=== PATIENT | male | born 1960 | race Caucasian/White ===

== ENCOUNTER 2022-06-20 16:38 | Inpatient (IN) ==
--- NOTE | 2022-06-20 17:05 | ED Triage Note ---
Date of Service June 20, 2022 History of Present Illness This patient was briefly evaluated while in triage. An abbreviated physical exam was performed. This patient is a 61-year-old Male with past medical history of previous stroke and DC who presents to the ED for evaluation of vision problems, sudden loss of vision in right eye that started monday morning, woke up with "black, no vision". No change since Monday. Dr. Whiting sent in for evaluyation. Reports DURANT and pain behind the right eye. Takes baby ASA. Physical Exam CONSTITUTIONAL: No acute distress. Well appearing. HEENT: Normocephalic, atraumatic. Pupils round, large, poorly reactive to light bilaterally. EOMI with no nystagmus. Patient reports complete loss of vision in right eye. RESPIRATORY: Clear to auscultation bilaterally. Equal expansion bilaterally. CARDIOVASCULAR: Regular rate and rhythm with no murmurs, rubs or gallops. Normal peripheral perfusion. NEUROLOGIC: Alert and oriented X 4 with normal affect. Normal strength and sensation in all 4 extremities. No pronator drift. Normal speech. Initial orders for labs and / or imaging were placed and patient was placed in the waiting area until a bed is available. Please see further documentation for the full ED course.
[2022-06-20] MEDS ORDERED: SODIUM CHLORIDE 0.9% 1000ML 500 ML IV ONE (17:15)
[2022-06-20 18:41] LABS: Basophils # (auto) 0.05 K/uL (0-0.2); Basophils % (auto) 0.7 %; Eosinophils # (auto) 0.44 K/uL (0-0.50); Hematocrit (blood only) 35.8 % (40.1-51.0); Hemoglobin 12.1 g/dl (14.0-18.0); Immature Granulocytes # (auto) 0.03 K/uL (0.00-0.02); Immature Granulocytes % (auto) 0.4 %; Lymphocytes # (auto) 1.42 K/uL (1.2-3.4); Lymphocytes % (auto) 19.4 %; Mean Corpuscular Hemoglobin 29.2 pg (25.0-34.0); Mean Corpuscular Hgb Conc 33.8 g/dL (32.0-36.0); Mean Corpuscular Volume 86.3 fL (80.0-100.0); Mean Platelet Volume 9.7 fL (9.4-12.4); Monocytes # (auto) 0.75 K/uL (0.24-0.82); Monocytes % (auto) 10.3 %; Neutrophils # (auto) 4.62 K/uL (1.4-6.5); Neutrophils % (auto) 63.2 %; Platelet Count 274 K/uL (130-400); RDW Coefficient of Variation 16.4 % (11.5-14.5); RDW Standard Deviation 51.6 fL (36.4-46.3); Red Blood Count 4.15 M/uL (4.63-6.08); White Blood Count 7.31 K/ul (4.8-10.8)
[2022-06-20 18:53] LABS: Partial Thromboplastin Time 27.1 Seconds (21.0-31.0)
--- NOTE | 2022-06-20 19:08 | Emergency Department Note ---
History of Present Illness General Chief complaint: Neuro Symptoms/Deficit Stated complaint: LOSS OF SIGHT IN RIGHT EYE Time Seen by Provider: 06/20/22 18:28 History of Present Illness Provider complaint: Right eye vision loss Onset (ago): day(s) 2 Location: eyes and right Radiation: non-radiation Severity: moderate Pain Consistency: + constant Maximum Pain Intensity: 8 Current Pain Intensity: 8 Quality: + sharp Relieved By: + none Exacerbated By: + none Associated symptoms: + headaches; no confusion, no chest pain, no cough, no di aphoresis, no fever/chills, no nausea/vomiting, no rash, no seizure, no shortness of breath or no syncope 61-year-old male presents emergency department for right eye vision loss. Patient states he went to bed Monday night and then woke up Monday morning and could not see out of his right eye. He states over the last 2 days he has developed pain behind his right eye. He reports no trauma or falls. No fevers. The patient states he went to his patient support specialist Dr. Whiting who did an eye exam on him which was normal and then referred him to the emergency department for a rule out stroke. Home Medications Medication Instructions Recorded Confirmed Type amlodipine 10 mg tablet (Norvasc) 10 mg PO DAILY 05/07/21 06/20/22 History hydrochlorothiazide 25 mg tablet 25 mg PO DAILY 05/07/21 06/20/22 History lisinopril 40 mg tablet 40 mg PO DAILY 05/07/21 06/20/22 History nitroglycerin 0.4 mg sublingual 0.4 mg sublingual Q5M PRN Chest 05/07/21 06/20/22 History tablet (Nitrostat) Pain rosuvastatin 40 mg tablet 40 mg PO DAILY 05/07/21 06/20/22 History cilostazol 50 mg tablet 50 mg PO BID 06/18/21 06/20/22 History metoprolol tartrate 25 mg tablet 25 mg PO BID 08/13/21 06/20/22 History aspirin 81 mg tablet,delayed 81 mg PO DAILY 06/20/22 06/20/22 History release cholecalciferol (vitamin D3) 125 250 mcg PO DAILY 06/20/22 06/20/22 History mcg (5,000 unit) tablet (Vitamin D3) coenzyme Q10 100 mg capsule 100 mg PO DAILY 06/20/22 06/20/22 History (CoQ-10) omega-3 fatty acids 1,000 mg 1,000 mg PO DAILY 06/20/22 06/20/22 History capsule Allergies Allergy/AdvReac Type Severity Reaction Status Date / Time Penicillins Allergy Unknown CAN'T Verified 06/20/22 20:31 REMEMBER diclofenac AdvReac Intermediate Vomiting Verified 06/20/22 20:31 Past Med/Surg History Medical History Coronary artery disease CVA (cerebral vascular accident) Hyperlipidemia Surgical History History of appendectomy History of cardiac cath Stented coronary artery Family History Mother Cardiovascular disease Social History Smoking Status: Never smoker Tobacco Type: Cigarettes Age Quit Using Tobacco: 53; packs per day: 1; Years Smoked: 35; Number of Years Since Quit: 7; Feels Safe at Home: Yes Review of Systems A total of 10 systems reviewed and were otherwise negative Physical Exam Vital Signs Vital Signs - 24 hr 06/20/22 17:01 06/20/22 18:26 06/20/22 19:39 Temperature 36.7 C 36.6 C Temperature Source Temporal Artery Scan Oral Pulse Rate 52 L Pulse Rate [Apical] 45 L 56 L Pulse Rhythm [Apical] Regular Pulse Strength [Apical] Normal Respiratory Rate 18 22 18 Respiratory Effort / Characteristics Non-Labored Spontaneous Non-Labored Respiratory Depth Normal Normal Respiratory Pattern Regular Blood Pressure 95/56 L Blood Pressure [Left Arm] 117/66 135/61 Blood Pressure Mean 69 Blood Pressure Mean [Left Arm] 83 85 Blood Pressure Position [Left Arm] Lying Pulse Oximetry 99 100 98 Oxygen Delivery Method Room Air Room Air Room Air Sepsis Recent Fever Within 48 Hours No Sepsis New/Unexplained Change in Mental Status No Sepsis Action Taken by Nursing No Action Required 06/20/22 21:40 Temperature Temperature Source Pulse Rate Pulse Rate [Apical] 80 Pulse Rhythm [Apical] Pulse Strength [Apical] Respiratory Rate 18 Respiratory Effort / Characteristics Non-Labored Respiratory Depth Normal Respiratory Pattern Blood Pressure Blood Pressure [Left Arm] 167/68 H Blood Pressure Mean Blood Pressure Mean [Left Arm] 101 Blood Pressure Position [Left Arm] Pulse Oximetry 96 Oxygen Delivery Method Room Air Sepsis Recent Fever Within 48 Hours Sepsis New/Unexplained Change in Mental Status Sepsis Action Taken by Nursing Physical Exam GENERAL: He is oriented to person, place, and time. He appears well-developed and well-nourished. He does not appear distressed. HENT: Exam performed. - Head: Pain on palpation of the right caodaism. - Right Ear: External ear normal. No mastoid tenderness. - Left Ear: External ear normal. No mastoid tenderness. - Mouth/Throat: The oropharynx is clear and moist. No trismus in the jaw. No dental abscesses or uvula swelling. No oropharyngeal exudate or tonsillar abscesses. EYES: Right eye vision loss. NECK: Normal range of motion. Neck supple. No JVD present. No spinous process tenderness present. No carotid bruit present. No rigidity. No tracheal deviation and normal range of motion present. No Brudzinski's sign and no Kernig's sign noted. CV: Normal rate, regular rhythm, normal heart sounds and intact distal pulses. There is no peripheral edema. Palpable radial pulses bue. PULM/CHEST: Effort normal and breath sounds normal. No respiratory distress. No stridor. He has no wheezes. He has no rales. - Chest Wall: He exhibits no tenderness. ABD: The abdomen is soft. Bowel sounds are normal. He has no distension. No mass is present. There is no tenderness. There is no rebound, no guarding, no Mak's sign and no tenderness at McBurney's point. Rovsig negative. MUSC/SKEL: Normal range of motion. There is no peripheral edema, tenderness or deformity. LYMPH: No cervical adenopathy. NEURO: He is alert and oriented to person, place, and time. He has normal strength. No cranial nerve deficit or sensory deficit. Coordination and gait normal. GCS eye subscore is 4. GCS verbal subscore is 5. GCS motor subscore is 6. Cerebellar tests wnl. SKIN: Skin is warm and dry. He is not diaphoretic. PSYCH: He has a normal mood and affect. Behavior is normal. Judgment and thought content normal. Course Course 1827: The patient was evaluated in room A12. A complete history and physical exam was performed Cardiac monitoring: An order was placed for continuous cardiac monitoring. The monitor shows a rate of 50 with sinus rhythm 2003: Labs show a BUN of 129 creatinine of 13.2. Patient does have a history of CKD however his creatinine usually runs around 2. Patient's ESR is elevated at 77. Discussed the case with on-call nephrology Dr. Ortez. He recommends placing a Davis in on the patient. He recommends getting ultrasound of the kidneys. Saline at 75 cc/h. He also recommends stopping the patient's diclofenac and lisinopril. He states he can evaluate the patient tomorrow morning on the inpatient unit and to admit the patient to the hospital service. Given the patient's elevated creatinine, CT angios will be canceled and we will move the patient to getting an MRI to make sure that there is no stroke. 2225: Vital signs stable. MRI negative for any stroke. Given patient's elevated ESR, mono ocular vision loss in the right eye, and pain on palpation of the temples, we will attempted to 8 the patient for temporal arteritis with Solu-Medrol 500 mg IV. Given the patient's onset of symptoms was when he awoke Monday, it is thought that is very unlikely that the Solu-Medrol will help restore the patient's vision however we will try it. Patient will be admitted to the hospitalist team for his TISHA and temporal arteritis. Dr. Chew made aware and will evaluate the patient Administered Medications Sodium Chloride (Nss 1000ml) 1,000 mls @ 75 mls/hr IV .[id number] DANA Stop: 07/20/22 20:14 Last Admin: 06/20/22 21:39 Dose: 75 mls/hr Documented By: COBRIN Discontinued Medications Diphenhydramine HCl (Diphenhydramine 50 Mg/Ml Vial) 25 mg IV NOW STA Stop: 06/20/22 22:24 Last Admin: 06/20/22 22:32 Dose: 25 mg Documented By: CORBIN Sodium Chloride (Nss 1000ml) 500 mls @ 999 mls/hr IV .Q31M ONE Stop: 06/20/22 17:45 Last Infusion: 06/20/22 19:40 Dose: 0 mls/hr Documented By: Admin: 06/20/22 18:22 Dose: 999 mls/hr Documented By: RITA Methylprednisolone (Methylprednisolone 125 Mg/2 Ml Vial) 500 mg IV NOW STA Stop: 06/20/22 22:24 Last Admin: 08/01/22 22:32 Dose: 500 mg Documented By: CORBIN Metoclopramide HCl (Metoclopramide Hcl Inj 5 Mg/Ml 2 Ml Vial) 5 mg IV ONE ONE Stop: 06/20/22 22:24 Last Admin: 06/20/22 22:32 Dose: 5 mg Documented By: CORBIN Medical Decision Making Laboratory Data Result diagrams: 06/20/22 18:15 06/20/22 18:15 Lab Results 06/20/22 06/20/22 06/20/22 Range/Units 18:15 18:15 18:15 WBC 7.31 (4.8-10.8) K/ul RBC 4.15 L (4.63-6.08) M/uL Hgb 12.1 L (14.0-18.0) g/dl Hct 35.8 L (40.1-51.0) % MCV 86.3 (80.0-100.0) fL MCH 29.2 (25.0-34.0) pg MCHC 33.8 (32.0-36.0) g/dL RDW Std Deviation 51.6 H (36.4-46.3) fL RDW Coeff of Jhonatan 16.4 H (11.5-14.5) % Plt Count 274 (130-400) K/uL MPV 9.7 (9.4-12.4) fL Immature Gran % (Auto) 0.4 % Neut % (Auto) 63.2 % Lymph % (Auto) 19.4 % Garden % (Auto) 10.3 % Eos % (Auto) 6.0 % Baso % (Auto) 0.7 % Neut # (Auto) 4.62 (1.4-6.5) K/uL Lymph # (Auto) 1.42 (1.2-3.4) K/uL Garden # (Auto) 0.75 (0.24-0.82) K/uL Eos # (Auto) 0.44 (0-0.50) K/uL Baso # (Auto) 0.05 (0-0.2) K/uL Immature Gran # (Auto) 0.03 H (0.00-0.02) K/uL ESR 77 H (0-20) mm/hr PT 11.0 (9.0-12.0) Seconds INR 1.0 (0.9-1.1) APTT 27.1 (21.0-31.0) Seconds PTT Ratio 1.0 Sodium (136-145) mmol/L Potassium (3.5-5.1) mmol/L Chloride (98-107) mmol/L Carbon Dioxide (21-32) mmol/L Anion Gap (3-11) BUN (6-23) mg/dl Creatinine (0.6-1.4) mg/dl Est Cr Clr Drug Dosing ml/min Est GFR ( Amer) ml/min Est GFR (Non-Af Amer) ml/min BUN/Creatinine Ratio (10-20) Glucose (70-99(Fasting)) mg/dl Calcium (8.5-10.1) mg/dl Total Bilirubin (0.2-1.0) mg/dl AST (13-39) U/L ALT (7-52) U/L Alkaline Phosphatase (34-104) U/L Troponin I High Sens (0-20) pg/ml C-Reactive Protein (0-0.5) mg/dl Total Protein (6.0-8.3) gm/dl Albumin (3.4-5.0) gm/dl Globulin (2.5-4.0) gm/dl Albumin/Globulin Ratio (0.9-2) Urine Color Urine Appearance (Clear) Urine pH (4.5-7.5) Ur Specific [place] (1.000-1.030) Urine Protein (Negative) Urine Glucose (UA) (Negative) Urine Ketones (Negative) Urine Blood (Negative) Urine Nitrite (Negative) Urine Bilirubin (Negative) Urine Urobilinogen (Negative) Ur Leukocyte Esterase (Negative) Urine WBC (Auto) (0-5) /hpf Urine RBC (Auto) (0-4) /hpf U Hyaline Cast (Auto) (0-5) /lpf U Epithel Cells (Auto) (0-5) /lpf Urine Bacteria (Auto) (Negative) Granular Casts (0) /lpf Urine Yeast SARS-CoV-2, RNA, NAAT (NEGATIVE) 06/20/22 06/20/22 06/20/22 Range/Units 18:15 19:31 21:43 WBC (4.8-10.8) K/ul RBC (4.63-6.08) M/uL Hgb (14.0-18.0) g/dl Hct (40.1-51.0) % MCV (80.0-100.0) fL MCH (25.0-34.0) pg MCHC (32.0-36.0) g/dL RDW Std Deviation (36.4-46.3) fL RDW Coeff of Jhonatan (11.5-14.5) % Plt Count (130-400) K/uL MPV (9.4-12.4) fL Immature Gran % (Auto) % Neut % (Auto) % Lymph % (Auto) % Garden % (Auto) % Eos % (Auto) % Baso % (Auto) % Neut # (Auto) (1.4-6.5) K/uL Lymph # (Auto) (1.2-3.4) K/uL [place] # (Auto) (0.24-0.82) K/uL Eos # (Auto) (0-0.50) K/uL Baso # (Auto) (0-0.2) K/uL Immature Gran # (Auto) (0.00-0.02) K/uL ESR (0-20) mm/hr PT (9.0-12.0) Seconds INR (0.9-1.1) APTT (21.0-31.0) Seconds PTT Ratio Sodium 139 (136-145) mmol/L Potassium 3.8 (3.5-5.1) mmol/L Chloride 99 (98-107) mmol/L Carbon Dioxide 20 L (21-32) mmol/L Anion Gap 20 H (3-11) BUN 129 H (6-23) mg/dl Creatinine 13.24 H* (0.6-1.4) mg/dl Est Cr Clr Drug Dosing 7.1 ml/min Est GFR ( Amer) 4.2 ml/min Est GFR (Non-Af Amer) 3.6 ml/min BUN/Creatinine Ratio 9.7 L (10-20) Glucose 124 H (70-99(Fasting)) mg/dl Calcium 9.2 (8.5-10.1) mg/dl Total Bilirubin 0.2 (0.2-1.0) mg/dl AST 11 L (13-39) U/L ALT 18 (7-52) U/L Alkaline Phosphatase 56 (34-104) U/L Troponin I High Sens 8.7 (0-20) pg/ml C-Reactive Protein 1.15 H (0-0.5) mg/dl Total Protein 7.3 (6.0-8.3) gm/dl Albumin 3.9 (3.4-5.0) gm/dl Globulin 3.4 (2.5-4.0) gm/dl Albumin/Globulin Ratio 1.1 (0.9-2) Urine Color Yellow Urine Appearance Clear (Clear) Urine pH 5.0 (4.5-7.5) Ur Specific [place] 1.013 (1.000-1.030) Urine Protein 1+ H (Negative) Urine Glucose (UA) Negative (Negative) Urine Ketones Negative (Negative) Urine Blood Trace H (Negative) Urine Nitrite Negative (Negative) Urine Bilirubin Negative (Negative) Urine Urobilinogen Negative (Negative) Ur Leukocyte Esterase Negative (Negative) Urine WBC (Auto) 1-5 (0-5) /hpf Urine RBC (Auto) 0-4 (0-4) /hpf U Hyaline Cast (Auto) 1-5 (0-5) /lpf U Epithel Cells (Auto) 20-30 H (0-5) /lpf Urine Bacteria (Auto) Negative (Negative) Granular Casts 1-5 H (0) /lpf Urine Yeast Not Reportable SARS-CoV-2, RNA, NAAT NEGATIVE (NEGATIVE) Imaging Data Radiologist's Impression: Renal Ultrasound 06/20/22 20:08 US renal/blad retro comp HISTORY: 61 years-old Male tisha acute kidney injury COMPARISON: Renal ultrasound 08/13/2021 TECHNIQUE: Multiple real-time sonographic images of the kidneys and urinary bladder were obtained assessing grayscale appearance and color flow FINDINGS: Right kidney measures 14.1 x 7.5 x 6.5 cm. The left kidney measures 12.9 x 7.6 x 7.4 cm. No renal calculi, hydronephrosis or suspicious mass lesion. Cortical thickness is normal bilaterally. Unremarkable urinary bladder. Ureteral jets not identified. IMPRESSION: Unremarkable renal ultrasound. ACT 112: Negative or not required by law. The above report was generated using voice recognition software. It may contain grammatical, syntax or spelling errors. Electronically signed by: Kyle Meek M.D. 06/20/2022 8:48 PM PreliminaryFindingsOnly See Final Report For Complete Findings MRI HEAD : No evidence of acute intercranial pathology. Minimal nonspecificwhite matter changes, which likely represent the sequelae of chronic small vessel ischemic disease. The flowvoids at the base of the brain are intact. Chronic ethmoid sinusitis. [facility]ologist: Emmanuelle Mejia MD Study ready at 22:07 and initial results transmitted at 22:17 ECG Data Indication: + other (R eye vision loss) Rate (beats per minute): 47 Rhythm: + sinus bradycardia ECG Intervals/blocks: + Normal QRS, + Normal NM and + Normal QT-c ECG ST segments: + Normal ST segments [facility] Narrative 182: The patient was evaluated in room A12. A complete history and physical exam was performed Cardiac monitoring: An order was placed for continuous cardiac monitoring. The monitor shows a rate of 50 with sinus rhythm 2002: Labs show a BUN of 129 creatinine of 13.2. Patient does have a history of CKD however his creatinine usually runs around 2. Patient's ESR is elevated at 77. Discussed the case with on-call nephrology Dr. Ortez. He recommends placing a Davis in on the patient. He recommends getting ultrasound of the kidneys. Saline at 75 cc/h. He also recommends stopping the patient's diclofenac and lisinopril. He states he can evaluate the patient tomorrow morning on the inpatient unit and to admit the patient to the hospital service. Given the patient's elevated creatinine, CT angios will be canceled and we will move the patient to getting an MRI to make sure that there is no stroke. 2225: Vital signs stable. MRI negative for any stroke. Given patient's elevated ESR, mono ocular vision loss in the right eye, and pain on palpation of the temples, we will attempted to 8 the patient for temporal arteritis with Solu-Medrol 500 mg IV. Given the patient's onset of symptoms was when he awoke Monday morning, it is thought that is very unlikely that the Solu-Medrol will help restore the patient's vision however we will try it. Patient will be admitted to the hospitalist team for his TISHA and temporal arteritis. Dr. Mike estrada made aware and will evaluate the patient Impression & Plan TISHA (acute kidney injury), Temporal arteritis Discharge Plan Visit Data Chief Complaint: Neuro Symptoms/Deficit Stated Complaint: LOSS OF SIGHT IN RIGHT EYE ED Provider: Jaydon [place] Discharge Problem: TISHA (acute kidney injury), Temporal arteritis Patient Disposition: Admitted As Inpatient Forms Stand Alone Forms: My [facility] Prescriptions Prescriptions: No Action hydrochlorothiazide 25 mg tablet 25 mg PO DAILY lisinopril 40 mg tablet 40 mg PO DAILY nitroglycerin [Nitrostat] 0.4 mg tablet, sublingual 0.4 mg sublingual Q5M PRN (Reason: Chest Pain) Rx Instructions: do not exceed 3 doses per episode amlodipine [Norvasc] 10 mg tablet 10 mg PO DAILY rosuvastatin 40 mg tablet 40 mg PO DAILY cilostazol 50 mg tablet 50 mg PO BID metoprolol tartrate 25 mg tablet 25 mg PO BID omega-3 fatty acids 1,000 mg Capsule 1,000 mg PO DAILY aspirin 81 mg Tablet,Delayed Release (Dr/Ec) 81 mg PO DAILY coenzyme Q10 [CoQ-10] 100 mg Capsule 100 mg PO DAILY cholecalciferol (vitamin D3) [Vitamin D3] 125 mcg (5,000 unit) Tablet 250 mcg PO DAILY Referrals Referrals: Endy Garner MD [Primary Care Provider] -
[2022-06-20 19:14] LABS: Troponin I High Sensitivity 8.7 pg/ml (0-20)
[2022-06-20 19:46] LABS: Albumin Globulin Ratio 1.1 (0.9-2); Albumin Level 3.9 gm/dl (3.4-5.0); BUN Creatinine Ratio 9.7 (10-20); Bilirubin,Total 0.2 mg/dl (0.2-1.0); C Reactive Protein 1.15 mg/dl (0-0.5); Calcium 9.2 mg/dl (8.5-10.1); Creatinine Clr Calc Pharmacy 7.1 ml/min; Est GFR (African American) 4.2 ml/min; Est GFR (Non-African American) 3.6 ml/min; Globulin 3.4 gm/dl (2.5-4.0); Potassium 3.8 mmol/L (3.5-5.1); Total Protein 7.3 gm/dl (6.0-8.3)
[2022-06-20] MEDS ORDERED: SODIUM CHLORIDE 0.9% 1000ML 1,000 ML IV SCH (20:15)
--- NOTE | 2022-06-20 20:49 | Ultrasound Report ---
US renal/blad retro comp HISTORY: 61 years-old Male steve acute kidney injury COMPARISON: Renal ultrasound 08/13/2021 TECHNIQUE: Multiple real-time sonographic images of the kidneys and urinary bladder were obtained ass essing grayscale appearance and color flow FINDINGS: Right kidney measures 14.1 x 7.5 x 6.5 cm. The left kidney measures 12.9 x 7.6 x 7.4 cm. No renal mela culi, hydronephrosis or suspicious mass lesion. Cortical thickness is normal bilaterally. Unremarkable urinary bladder. Ureteral jets not identified. IMPRESSION: Unremarkable renal ultrasound. ACT 112: Negative or not required by law. The above report was generated using voice recognition software. It may contain grammatical, syntax o r spelling errors. Electronically signed by: Kyle Meek M.D. 06/20/2022 8:48 PM
[2022-06-20 22:01] LABS: Appearance Urine Clear (Clear); Bacteria Urine Automated Negative (Negative); Bilirubin Urine Negative (Negative); Blood Urine Trace (Negative); Color Urine Yellow; Epithelial Cell Urine Auto 20-30 /lpf (0-5); Glucose Urine UA Negative (Negative); Ketones Urine Negative (Negative); Leukocyte Esterase Urine Negative (Negative); Nitrite Urine Negative (Negative); Protein Urine 1+ (Negative); RBC Urine Automated 0-4 /hpf (0-4); Specific Gravity Urine 1.013 (1.000-1.030); Urobilinogen Urine Negative (Negative)
[2022-06-20] MEDS ORDERED: diphenhydrAMINE 50 MG/ML VIAL IV STA (22:23)
[2022-06-20] MEDS ORDERED: methylPREDNISolone 125 MG/2 ML VIAL IV STA (22:23)
[2022-06-20] MEDS ORDERED: METOCLOPRAMIDE HCL INJ 5 MG/ML 2 ML VIAL IV ONE (22:23)
--- NOTE | 2022-06-20 23:53 | History & Physical Report ---
Date of Service June 20, 2022 Assessment & Plan (1) Vision loss of right eye: Plan: 61yo male with a history of HTN, HLD, CAD s/p RCA stent (x2, done in 2013), CKD3 (baseline creatinine ~2.0) presents with a two-day history of right-sided vision loss and right eye pain in the setting of a two-week history of nausea, vomiting, diarrhea, and poor PO intake. Sudden-onset right-sided vision loss and eye pain MRI brain ([facility] read): no acute intracranial pathology, minimal nonspecific white matter changes, chronic ethmoid sinusitis Labs notable for ARF (see below) and elevated ESR/CRP; hsTroponin not elevated Symptoms suspicious for cardioembolic event given acute vision loss concomitant with acute renal failure; no known history of atrial fibrillation, cardiac rhythm currently sinus (EKG: NSR with PACs) Differential also includes temporal arteritis; methylprednisolone 500mg IV (x1) given ED, monitor for symptom resolution Elevated ESR/CRP supports diagnosis of temporal arteritis Will hold off on heparin gtt for now given undifferentiated pathophysiology; SCDs ordered Admit to med/telemetry Consider further steroid administration pending clinical course Physical exam not concerning for swallowing dysfunction, no speech eval ordered Echo ordered Neuro checks q2h Repeat lipid profile and HbA1c ordered Acute renal failure, history of CKD3 Creatinine on admission 13.24 (baseline ~2.0), BUN 129; patient has history of CKD3 but no known history of ARF Etiology unclear at this time ED provider discussed case with Dr. Ortez who recommended hernández placement, US kidneys, NSS at 75mL/hr, and holding nephrotoxins US kidneys unremarkable Hold/avoid nephrotoxins NSS @ 75mL/hr NPO pending further workup Hernández placed Trend renal function daily Nausea, vomiting, diarrhea, poor PO intake Two week history of the above symptoms though with some improvement over past day No electrolyte abnormalities, though BUN/Cr severely elevated as noted above NSS @ 75mL/hr NPO pending above workup Zofran prn Trend renal function and electrolytes; CMP ordered for AM Hypertension BP slightly soft on arrival, slightly hypertensive afterwards, BP then normalized Hold home regimen Continue to monitor Hyperlipidemia Continue home rosuvastatin Home ASA held Repeat lipid profile ordered, HbA1c ordered FEN: NPO, NSS @ 75mL/hr Code status: full code DVT ppx: SCDs Held home meds: lisinopril, HCTZ, amlodipine, metoprolol, ASA Consults: nephrology Dispo: med/telemetry (2) Acute renal failure: (3) TISHA (acute kidney injury): (4) Chronic kidney disease (CKD): (5) Coronary artery disease: (6) Hyperlipidemia: (7) Hypertension: (8) Obesity: History of Present Illness Primary Care Provider: Endy Garner MD 61yo male with a history of HTN, HLD, CAD s/p RCA stent (x2, done in 2013), CKD3 (baseline creatinine ~2.0), and hypertensive nephrosclerosis (as per 08/09 nephrology note) presents with a two-day history of right-sided vision loss and right eye pain in the setting of a two-week history of nausea, vomiting, diarrhea, and poor PO intake. Patient went to sleep Monday with only mild symptoms as noted, but when he woke up Monday (two days ago) he could not see out of his right eye at all, and had a sharp pain behind his right eye. Patient does have a history of CVA "many years ago" with the only persistent symptom being mild intermittent vertigo, which has not bothered patient recently. Patient went to an slip caster on 06/20 in the afternoon - the slip caster's exam was reportedly without acute findings, and so patient was referred to the ED for workup for CVA. Denies fever, chills, CP, SOB, abdominal pain, lightheadedness, dizziness, or other symptoms. No recent travel, no recent illnesses preceding the last two weeks. No recent falls or trauma. Patient does note he didn't urinate for two days last week though this has improved. Patient has been drinking three to four 16oz bottles of water and one to two 12oz bottles of gatorade each day. [place], but denies any recent known tick bites. Patient does note he got a sunburn on his nose recently which has scabbed over. Upon arrival to [facility], vitals were noted for low-end blood pressure, and were otherwise stable. Patient afebrile, spO2 adequate on room air. Labs on admission were primarily notable for a creatinine of 13.2 and BUN of 129 in addition to mild anemia (12.1), elevated ESR (77), and elevated CRP (1.15). No leukocytosis, platelets wnl, INR 1.0, LFTs wnl. Covid negative. UA was notable for granular casts (1-5), 1+ protein, and trace blood; UA was otherwise unremarkable. In the ED, patient was given NSS 500mL bolus (x1), started on NSS @ 125mL/hr, and was given methylprednisolone IV 500mg (x1), metoclopramide IV 5mg (x1), and diphenhydramine IV 25mg (x1). Patient's headache resolved while in the ED. Surrogate decision-maker in case of an emergency: Dixie Meyer (cell: [phone]) Allergies Allergy/AdvReac Type Severity Reaction Status Date / Time Penicillins Allergy Unknown CAN'T Verified 06/20/22 20:31 REMEMBER diclofenac AdvReac Intermediate Vomiting Verified 06/20/22 20:31 Home Medications Medication Instructions Recorded Confirmed Type amlodipine 10 mg tablet (Norvasc) 10 mg PO DAILY 05/07/21 06/20/22 History hydrochlorothiazide 25 mg tablet 25 mg PO DAILY 05/07/21 06/20/22 History lisinopril 40 mg tablet 40 mg PO DAILY 05/07/21 06/20/22 History nitroglycerin 0.4 mg sublingual 0.4 mg sublingual Q5M PRN Chest 05/07/21 06/20/22 History tablet (Nitrostat) Pain rosuvastatin 40 mg tablet 40 mg PO DAILY 05/07/21 06/20/22 History cilostazol 50 mg tablet 50 mg PO BID 06/18/21 06/20/22 History metoprolol tartrate 25 mg tablet 25 mg PO BID 08/13/21 06/20/22 History aspirin 81 mg tablet,delayed 81 mg PO DAILY 06/20/22 06/20/22 History release cholecalciferol (vitamin D3) 125 250 mcg PO DAILY 06/20/22 06/20/22 History mcg (5,000 unit) tablet (Vitamin D3) coenzyme Q10 100 mg capsule 100 mg PO DAILY 06/20/22 06/20/22 History (CoQ-10) omega-3 fatty acids 1,000 mg 1,000 mg PO DAILY 06/20/22 06/20/22 History capsule Past Med/Surg History Medical History Coronary artery disease CVA (cerebral vascular accident) Hyperlipidemia Surgical History History of appendectomy History of cardiac cath Stented coronary artery Family History Mother Cardiovascular disease Social History Smoking Status: Former smoker Tobacco Type: Cigarettes Age Quit Using Tobacco: 53; packs per day: 1; Years Smoked: 35; Number of Years Since Quit: 7; Hx Alcohol Use: Yes Alcohol type: beer Hx Substance Use: No Preferred Language: Lithuanian Manager Process Excellence Required: No Beliefs That Will Affect Care: None Current Living Situation: Spouse Feels Safe at Home: Yes Assistive Devices: Apnea Monitor Assistive Devices Comment: glasses not with patient Physical Exam Physical Exam: Constitutional: well-appearing, no acute distress HEENT: NCAT, no conjunctival injection, right gnosticist tender to palpation CV: regular rhythm, no murmur appreciated, extremities well-perfused, no LE edema Resp: CTABL, no wheezes/rales/rhonchi appreciated, no increased work of breathing GI: soft, nondistended, nontender, BS normoactive MSK: no gross deformities appreciated Skin: warm, dry, no rash appreciated Neuro: alert, oriented, no focal neurologic deficit appreciated Results & Data Results & Data ([facility]) Vital Signs (Past 12 Hours) Vital Signs Temp Pulse Pulse Resp BP BP Pulse Ox 06/20/22 23:47 82 18 116/60 98 06/20/22 21:40 80 18 167/68 H 96 06/20/22 19:39 56 L 18 135/61 98 06/20/22 18:26 36.6 C 45 L 22 117/66 100 06/20/22 17:01 36.7 C 52 L 18 95/56 L 99 O2 Del Method 06/20/22 23:47 Room Air 06/20/22 21:40 Room Air 06/20/22 19:39 Room Air 06/20/22 18:26 Room Air 06/20/22 17:01 Room Air Supervising Physician Co-Signing Physician Notes Attending addendum: I have physically seen this patient, have supervised the medical residents activities, and agree with the H&P unless as otherwise noted. Assessment and Plan: Sudden onset vision loss right eye- Referred by his eye doctor Dr. Whiting Combined with acute renal failure, concern regarding possible embolic disease Elevated sedimentation rate 77, could be consistent with temporal arteritis Given empiric methylprednisolone 500mg IV by the ED, and will continue IV anti- inflammatories Admit to monitored bed for serial troponins and cardiac rhythm monitoring Neurochecks every 2 hours Order complete echocardiogram Consult neurology Acute renal failure on CKD stage III- Creatinine 13.24 on admission with baseline creatinine approximately 2.[address] Ortez over the phone by ED with recommendations as noted Renal ultrasound is unremarkable NSS at 75 mils per hour Hernández catheter placement Daily chemistry profile Nausea/vomiting/diarrhea and poor p.o. intake- NSS at 75 mils per hour Ordered CT abdomen pelvis without contrast Dehydration at least contributing to acute renal failure Remaining orders and notations as noted Resident Activity Tracking Resident Involvement: Resident Care Provided and Electric Blanket Wirer Coverage Note Care Provided: Adult Hospital Medicine
[2022-06-21] MEDS ORDERED: BACITRACIN OINT 15 GM TUBE ONE (00:09)
[2022-06-21] MEDS ORDERED: NITROGLYCERIN SL 0.4 MG/TAB TAB SL PRN (03:00)
[2022-06-21] MEDS ORDERED: MELATONIN 3 MG TAB PO PRN (03:00)
[2022-06-21 06:01] LABS: Hematocrit (blood only) 36.6 % (40.1-51.0); Hemoglobin 12.4 g/dl (14.0-18.0); Mean Corpuscular Hemoglobin 28.7 pg (25.0-34.0); Mean Corpuscular Hgb Conc 33.9 g/dL (32.0-36.0); Mean Corpuscular Volume 84.7 fL (80.0-100.0); Mean Platelet Volume 9.7 fL (9.4-12.4); Platelet Count 284 K/uL (130-400); RDW Coefficient of Variation 16.2 % (11.5-14.5); RDW Standard Deviation 50.4 fL (36.4-46.3); Red Blood Count 4.32 M/uL (4.63-6.08); White Blood Count 6.69 K/ul (4.8-10.8)
[2022-06-21 06:22] LABS: Albumin Globulin Ratio 1.2 (0.9-2); Albumin Level 3.9 gm/dl (3.4-5.0); BUN Creatinine Ratio 10.7 (10-20); Bilirubin,Total 0.3 mg/dl (0.2-1.0); Calcium 8.5 mg/dl (8.5-10.1); Chol HDL Ratio 2.7 (0-5); Creatinine Clr Calc Pharmacy 8.4 ml/min; Est GFR (African American) 5.1 ml/min; Est GFR (Non-African American) 4.4 ml/min; Globulin 3.3 gm/dl (2.5-4.0); Magnesium 1.7 mg/dl (1.7-2.4); Phosphorus 8.6 mg/dl (2.5-4.9); Potassium 3.5 mmol/L (3.5-5.1); Total Protein 7.2 gm/dl (6.0-8.3)
--- NOTE | 2022-06-21 07:16 | Magnetic Resonance Report ---
Brain MRI WITHOUT CONTRAST HISTORY: Right eye vision loss. TECHNIQUE: Multiplanar multisequence MRI of the brain was performed without the use of contrast. COMPARISON STUDY: Brain MRI 01/28/2008. FINDINGS: There are no areas of restricted diffusion to suggest acute infarction. The midline structu res are intact. The paranasal sinuses demonstrate mild mucosal thickening. The mastoid air cells are clear. The ventricles and sulci are within normal limits for age. There is no mass, hematoma, midline shift. The major vascular flow-voids at the skull base are well maintained. A cavum septum callosum is again noted. IMPRESSION: No significant change compared to the prior study. No acute intracranial abnormality. ACT 112: Negative or not required by law. Electronically signed by: [place] M.D. 06/21/2022 7:14 AM
[2022-06-21 07:31] LABS: Basophils # (auto) 0.03 K/uL (0-0.2); Basophils % (auto) 0.4 %; Echinocytes 1+; Eosinophils # (auto) 0.02 K/uL (0-0.50); Eosinophils % (auto) 0.3 %; Immature Granulocytes # (auto) 0.04 K/uL (0.00-0.02); Immature Granulocytes % (auto) 0.6 %; Lymphocytes # (auto) 0.53 K/uL (1.2-3.4); Lymphocytes % (auto) 7.9 %; Monocytes # (auto) 0.09 K/uL (0.24-0.82); Monocytes % (auto) 1.3 %; Neutrophils # (auto) 5.98 K/uL (1.4-6.5); Neutrophils % (auto) 89.5 %
[2022-06-21 07:45] LABS: Estimated Average Glucose 154 mg/dl
--- NOTE | 2022-06-21 08:54 | Nephrology Progress Note ---
Date of Service June 21, 2022 Assessment & Plan Admission and Anticipated Discharge Date Admission Date: June 21, 2022 Results & Data ([facility]) Vital Signs (Past 12 Hours) Vital Signs Temp Pulse Pulse Resp BP Pulse Ox O2 Del Method 06/21/22 07:40 80 06/21/22 03:18 86 06/21/22 03:00 37 C 87 14 134/73 98 Room Air 06/21/22 02:12 62 18 132/64 96 Room Air 06/20/22 23:47 82 18 116/60 98 Room Air 06/20/22 21:40 80 18 167/68 H 96 Room Air Laboratory Results Laboratory Tests 11/24/21 06/20/22 06/20/22 14:04 18:15 21:43 WBC Hgb Hct Plt Count Sodium Potassium Chloride Carbon Dioxide BUN Creatinine 13.24 H* Glucose Hemoglobin A1c Calcium Phosphorus Albumin Urine Color Yellow Urine Appearance Clear Urine pH 5.0 Ur Specific [place] 1.013 Urine Protein 1+ H Urine Glucose (UA) Negative Urine Blood Trace H Urine WBC (Auto) 1-5 Urine RBC (Auto) 0-4 Granular Casts 1-5 H Protein/Creatinin Ratio 0.4 H 06/21/22 06/21/22 06/21/22 05:33 05:33 05:33 WBC 6.69 Hgb 12.4 L Hct 36.6 L Plt Count 284 Sodium 138 Potassium 3.5 Chloride 103 Carbon Dioxide 14 L BUN 119 H Creatinine 11.16 H* D Glucose 188 H Hemoglobin A1c 7.0 H Calcium 8.5 Phosphorus 8.6 H Albumin 3.9 Urine Color Urine Appearance Urine pH Ur Specific [place] Urine Protein Urine Glucose (UA) Urine Blood Urine WBC (Auto) Urine RBC (Auto) Granular Casts Protein/Creatinin Ratio Diagnostic Findings 06/21/22 Renal US: Right kidney measures 14.1 x 7.5 x 6.5 cm. The left kidney measures 12.9 x 7.6 x 7.4 cm. No renal calculi, hydronephrosis or suspicious mass lesion. Cortical thickness is normal bilaterally. Unremarkable urinary bladder. Ureteral jets not identified. PG Care Time/CCT Total # of Minutes Spent Total Time Spent with Patient: Total time spent is greater than 50% in coordination of care (as documented) at patient's floor/unit and/or counseling patient: Coding
[2022-06-21] MEDS: cilostazoL 100 MG TAB PO SCH ×2 (08:57→21:35)
[2022-06-21] MEDS: ROSUVASTATIN CALCIUM 20 MG TAB PO SCH (08:57)
[2022-06-21] MEDS: SODIUM CHLORIDE 0.9% 1000ML 1,000 ML IV SCH ×2 (08:57→18:53)
[2022-06-21] MEDS ORDERED: ACETAMINOPHEN 500 MG TAB PO PRN (09:32)
[2022-06-21] MEDS: SEVELAMER HCL 800 MG TABLET PO SCH ×3 (10:29→16:39)
--- NOTE | 2022-06-21 11:23 | Hospitalist Progress Note ---
Date of Service June 21, 2022 Assessment & Plan (1) Vision loss of right eye: Plan: 61yo male with a history of HTN, HLD, CAD s/p RCA stent (x2, done in 2013), CKD3 (baseline creatinine ~2.0) presents with a two-day history of right-sided vision loss and right eye pain in the setting of a two-week history of nausea, vomiting, diarrhea, and poor PO intake. Sudden-onset right-sided vision loss and eye pain MRI brain: no acute intracranial pathology, minimal nonspecific white matter changes, chronic ethmoid sinusitis Labs notable for ARF (see below) and elevated ESR/CRP; hsTroponin not elevated Differential includes temporal arteritis which is most likely, less suspicion for glaucoma or cardioembolic event Echocardiogram- EF 65-70%, no WMA, grade 1 diastolic dysfunction noted Neuro checks q2h Continue high dose IV methylprednisolone 1000 mg daily at this time General surgery consulted for temporal artery biopsy Carotid dopplers pending Acute renal failure, history of CKD3 Creatinine on admission 13.24 (baseline ~2.0) Etiology unclear at this time- may be due to fluid losses from recent possible GI illness in setting of CKD Renal ultrasound unremarkable for obstruction Holding lisinopril and HCTZ Davis catheter in place Nephrology consulted -Suspect TISHA due to ATN 2/2 dehydration in setting of ACEI therapy -Recommend more aggressive fluid repletion- NSS @ 150 ml/hr Cr improving with IVF- 10.0 today Trend BMP Nausea, vomiting, diarrhea, poor PO intake Two week history of the above symptoms though with some improvement over past day- possible viral GI illness which precipitated ARF No electrolyte abnormalities, though BUN/Cr severely elevated as noted above NSS @ 150 mL/hr Zofran prn Trend renal function and electrolytes Hypertension BP slightly soft on arrival, slightly hypertensive afterwards, BP then normalized Hold home regimen due to ARF Continue to monitor Hyperlipidemia Continue home rosuvastatin Home ASA held Repeat lipid profile wnl, HbA1c 7.0% FEN: NPO, NSS @ 150 mL/hr Code status: full code DVT ppx: SCDs Consults: nephrology, general surgery Dispo: med/telemetry (2) Acute renal failure: (3) TISHA (acute kidney injury): (4) Chronic kidney disease (CKD): (5) Coronary artery disease: (6) Hyperlipidemia: (7) Hypertension: (8) Obesity: Admission and Anticipated Discharge Date Admission Date: June 21, 2022 Supervising Physician Co-Signing Physician Notes I personally examined the patient and verified all tang points of history and exam, discussed case, and agree with decision making with Dr Robles Still no vision in right eye. Headache better but persists. Had a day or 2 with absolutely no urine output. Vitals noted, in general he is awake and alert pleasant no distress. HEENT normocephalic atraumatic mucous membranes moist. Breathing unlabored no accessory muscle use good effort. No vision in right eye, but pupil is reactive. No other focal neurodeficits no facial droop no arm weakness etc. Otherwise exam as above. Right eye blindnessgiven headache elevated sed rate paindifferentials definitely favor giant cell arteritis/temporal arteritis. With pain, unlikely to be amaurosis fugaxand while he does have risks for vascular disease, his work-up thus far is also negative for ischemic type findings. Ophthalmologic exam apparently not consistent with glaucoma, optic neuritis, etc. continue to follow closely. Steroids. Serial exams. Acute renal failurenot obstructive based on renal ultrasound. To that end, probably dehydration and diarrhea compounding dehydration causing a fairly severe ATN type picture. DVT prophylaxisHeparin subcu Otherwise as above Subjective No acute events overnight. Pt reports he still cannot see at all from R eye, though his R eye pain has resolved. Does endorse throbbing/sharp headache at area of R yazidism + behind R eye. Denies any jaw pain. States for past 2 weeks he has had multiple symptoms including nausea, reduced appetite, diarrhea as well as 2 days of urinary retention. He does note feeling slightly better in regard to the ocular symptoms since starting steroids. Denies any new weakness/numbness, slurred speech. Review of Systems Review of Systems: Per subjective Physical Exam Physical Exam: Constitutional: well-appearing, no acute distress, obese HEENT: NCAT, EOMI, anicteric sclerae, no conjunctival injection, right yazidism tender to palpation, no jaw tenderness CV: RRR, normal S1/S2, no murmur appreciated, extremities well-perfused, no LE edema Resp: CTAB, no wheezes/rales/rhonchi appreciated, no increased work of breathing GI: soft, nondistended, nontender MSK: no gross deformities appreciated Skin: warm, dry, no rash appreciated Neuro: alert, oriented, PERRLA, total loss of R vision with complete R visual field deficits, 5/5 strength of b/l LE and UE, no sensory deficits Results & Data Results & Data ([facility]) Vital Signs (Past 12 Hours) Vital Signs Temp Pulse Pulse Resp BP Pulse Ox O2 Del Method 06/21/22 07:40 80 06/21/22 03:18 86 06/21/22 03:00 37 C 87 14 134/73 98 Room Air 06/21/22 02:12 62 18 132/64 96 Room Air 06/20/22 23:47 82 18 116/60 98 Room Air Resident Activity Tracking Resident Involvement: Resident Care Provided Care Provided: Adult Hospital Medicine
--- NOTE | 2022-06-21 11:25 | XCELERA ---
[id number]
--- NOTE | 2022-06-21 11:28 | Nephrology Consultation ---
Date of Consultation June 21, 2022 Assessment & Plan (1) TISHA (acute kidney injury): * TISHA likely ATN due to dehydration in the setting of SEAN inhibitor therapy * Hold Lisinopril and HCTZ * Patient denies use of Diclofenac or OTC NSAID since last Nephrology OV 08/10 * Increase IVF to 150 cc/hr * Keep Davis catheter in place. UO has not yet been recorded but patient reports that staff psychiatrist has just emptied the collection bag. There is another 200 cc clear yellow urine in collection bag this am * Renal US was negative for obstruction, PSA < 4.0 * Monitor PRP (2) Chronic kidney disease (CKD): * CKD stage G3/A2 (moderate impairment). Baseline Cr 1.4 - 1.8 w/ EGFR 39 cc/min. Prior evaluation revealed acellular urine sediment. UPCR 0.8. 08/10 renal US - R 13 cm, L 11.3 cm, no hydronephrosis/mass/stone. Renal impairment was attributed to microvascular disease, hypertensive nephrosclerosis and chronic NSAID use (3) Vision loss of right eye: * Await results of carotid doppler, echocardiogram * Primary service considering temporal artery biopsy History of Present Illness Reason for Consultation: TISHA/CKD Attending Physician: Kristian Canseco DO History of Present Illness Mr. Meyer is a 61 year old white male who is seen at the request of the [facility] hospitalist service for evlauation of TISHA/CKD. Medical records in the EMR were reviewed today and are summarized as follows: Mr. Meyer has CKD stage G3/A2 (moderate impairment). Baseline Cr 1.4 - 1.8 w/ EGFR 39 cc/min. Prior eval uation revealed acellular urine sediment. UPCR 0.8. 08/10 renal US - R 13 cm, L 11.3 cm, no hydronephrosis/mass/stone. Renal impairment was attributed to microvascular disease, hypertensive nephrosclerosis and chronic NSAID use. Mr. Meyer was last evaluated in the Nephrology office 08/10. He was advised to reduce/stop NSAID use and return in 3 months for ongoing monitoring. He cancelled his 11/09 visit and was lost to follow up. Mr. Meyer reports that he stopped his Diclofenac but remained on Lisinopril and HCTZ. His medical history is significant for ASCVD (RCA stent x2 12/03 Dr. Pat), HTN, CVA, hyperlipidemia, obesity (BMI 38) and remote h/o tobacco use. 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 He reports heat exhaustion during the last 2 weeks and did not make any urine for the last 2 days. Yesterday he lost sight in his R eye and presented to his Instrument Adjuster for evaluation. He was subsequently referred to [facility] EMD for evaluation of possible CVA. Laboratory testing revealed Cr 13, urinalysis w/ granular casts, Hgb 12, COVID negative. IVF were provided, brain MRI was negative for CVA, renal US was negative for hydronephrosis. Allergies Allergy/AdvReac Type Severity Reaction Status Date / Time Penicillins Allergy Unknown CAN'T Verified 06/20/22 20:31 REMEMBER diclofenac AdvReac Intermediate Vomiting Verified 06/20/22 20:31 Home Medications Medication Instructions Recorded Confirmed Type amlodipine 10 mg tablet (Norvasc) 10 mg PO DAILY 05/07/21 06/20/22 History hydrochlorothiazide 25 mg tablet 25 mg PO DAILY 05/07/21 06/20/22 History lisinopril 40 mg tablet 40 mg PO DAILY 05/07/21 06/20/22 History nitroglycerin 0.4 mg sublingual 0.4 mg sublingual Q5M PRN Chest 05/07/21 06/20/22 History tablet (Nitrostat) Pain rosuvastatin 40 mg tablet 40 mg PO DAILY 05/07/21 06/20/22 History cilostazol 50 mg tablet 50 mg PO BID 06/18/21 06/20/22 History metoprolol tartrate 25 mg tablet 25 mg PO BID 08/13/21 06/20/22 History aspirin 81 mg tablet,delayed 81 mg PO DAILY 06/20/22 06/20/22 History release cholecalciferol (vitamin D3) 125 250 mcg PO DAILY 06/20/22 06/20/22 History mcg (5,000 unit) tablet (Vitamin D3) coenzyme Q10 100 mg capsule 100 mg PO DAILY 06/20/22 06/20/22 History (CoQ-10) omega-3 fatty acids 1,000 mg 1,000 mg PO DAILY 06/20/22 06/20/22 History capsule Patient History Medical History Coronary artery disease CVA (cerebral vascular accident) Hyperlipidemia Surgical History History of appendectomy History of cardiac cath Stented coronary artery Family History Mother Cardiovascular disease Social History Smoking Status: Former smoker Tobacco Type: Cigarettes Age Quit Using Tobacco: 53; packs per day: 1; Years Smoked: 35; Number of Years Since Quit: 7; Hx Alcohol Use: Yes Alcohol type: beer Hx Substance Use: No Preferred Language: Montenegrin 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 Beliefs That Will Affect Care: None Current Living Situation: Spouse Feels Safe at Home: Yes Assistive Devices: Glasses Assistive Devices Comment: glasses not with patient Review of Systems Constitutional: + weakness; no fever Eyes: + eye pain and + problem reported (loss of vision R eye) Ear, Nose, Mouth, Throat: + dry mouth Respiratory: no cough and no dyspnea Cardiovascular: no chest pain Gastrointestinal: no abdominal pain Genitourinary: + decreased urination (no UO last 2 days) Physical Exam Constitutional: + overweight; not in distress Eyes: + dilated pupils (R) ENMT: Mouth: + dry oral mucous membranes Neck: no carotid bruit Respiratory: normal respiratory effort, lungs clear to auscultation Cardiovascular: RRR, no murmur, no edema Skin: + turgor decreased Neurologic: awake; not confused Results & Data ([facility]) Vital Signs (Past 12 Hours) Vital Signs Temp Pulse Pulse Resp BP Pulse Ox O2 Del Method 06/21/22 07:40 80 06/21/22 03:18 86 06/21/22 03:00 37 C 87 14 134/73 98 Room Air 06/21/22 02:12 62 18 132/64 96 Room Air 06/20/22 23:47 82 18 116/60 98 Room Air Laboratory Results Laboratory Results - last 24 hr 06/20/22 06/20/22 06/20/22 18:15 18:15 18:15 WBC 7.31 RBC 4.15 L Hgb 12.1 L Hct 35.8 L MCV 86.3 MCH 29.2 MCHC 33.8 RDW Std Deviation 51.6 H RDW Coeff of Jhonatan 16.4 H Plt Count 274 MPV 9.7 Immature Gran % (Auto) 0.4 Neut % (Auto) 63.2 Lymph % (Auto) 19.4 Marin % (Auto) 10.3 Eos % (Auto) 6.0 Baso % (Auto) 0.7 Neut # (Auto) 4.62 Lymph # (Auto) 1.42 Marin # (Auto) 0.75 Eos # (Auto) 0.44 Baso # (Auto) 0.05 Immature Gran # (Auto) 0.03 H Echinocytes ESR 77 H PT 11.0 INR 1.0 APTT 27.1 PTT Ratio 1.0 Sodium Potassium Chloride Carbon Dioxide Anion Gap BUN Creatinine Est Cr Clr Drug Dosing Est GFR ( Amer) Est GFR (Non-Af Amer) BUN/Creatinine Ratio Glucose Estimat Average Glucose Hemoglobin A1c Calcium Phosphorus Magnesium Total Bilirubin AST ALT Alkaline Phosphatase Troponin I High Sens C-Reactive Protein Total Protein Albumin Globulin Albumin/Globulin Ratio Triglycerides Cholesterol LDL Cholesterol, Calc VLDL Cholesterol, Calc HDL Cholesterol Cholesterol/HDL Ratio Prostate Specific Ag Urine Color Urine Appearance Urine pH Ur Specific [place] Urine Protein Urine Glucose (UA) Urine Ketones Urine Blood Urine Nitrite Urine Bilirubin Urine Urobilinogen Ur Leukocyte Esterase Urine WBC (Auto) Urine RBC (Auto) U Hyaline Cast (Auto) U Epithel Cells (Auto) Urine Bacteria (Auto) Granular Casts Urine Yeast SARS-CoV-2, RNA, NAAT 06/20/22 06/20/22 06/20/22 18:15 19:31 21:43 WBC RBC Hgb Hct MCV MCH MCHC RDW Std Deviation RDW Coeff of Jhonatan Plt Count MPV Immature Gran % (Auto) Neut % (Auto) Lymph % (Auto) Marin % (Auto) Eos % (Auto) Baso % (Auto) Neut # (Auto) Lymph # (Auto) Marin # (Auto) Eos # (Auto) Baso # (Auto) Immature Gran # (Auto) Echinocytes ESR PT INR APTT PTT Ratio Sodium 139 Potassium 3.8 Chloride 99 Carbon Dioxide 20 L Anion Gap 20 H BUN 129 H Creatinine 13.24 H* Est Cr Clr Drug Dosing 7.1 Est GFR ( Amer) 4.2 Est GFR (Non-Af Amer) 3.6 BUN/Creatinine Ratio 9.7 L Glucose 124 H Estimat Average Glucose Hemoglobin A1c Calcium 9.2 Phosphorus Magnesium Total Bilirubin 0.2 AST 11 L ALT 18 Alkaline Phosphatase 56 Troponin I High Sens 8.7 C-Reactive Protein 1.15 H Total Protein 7.3 Albumin 3.9 Globulin 3.4 Albumin/Globulin Ratio 1.1 Triglycerides Cholesterol LDL Cholesterol, Calc VLDL Cholesterol, Calc HDL Cholesterol Cholesterol/HDL Ratio Prostate Specific Ag Urine Color Yellow Urine Appearance Clear Urine pH 5.0 Ur Specific [place] 1.013 Urine Protein 1+ H Urine Glucose (UA) Negative Urine Ketones Negative Urine Blood Trace H Urine Nitrite Negative Urine Bilirubin Negative Urine Urobilinogen Negative Ur Leukocyte Esterase Negative Urine WBC (Auto) 1-5 Urine RBC (Auto) 0-4 U Hyaline Cast (Auto) 1-5 U Epithel Cells (Auto) 20-30 H Urine Bacteria (Auto) Negative Granular Casts 1-5 H Urine Yeast Not Reportable SARS-CoV-2, RNA, NAAT NEGATIVE 06/21/22 06/21/22 06/21/22 05:33 05:33 05:33 WBC 6.69 RBC 4.32 L Hgb 12.4 L Hct 36.6 L MCV 84.7 MCH 28.7 MCHC 33.9 RDW Std Deviation 50.4 H RDW Coeff of Jhonatan 16.2 H Plt Count 284 MPV 9.7 Immature Gran % (Auto) 0.6 Neut % (Auto) 89.5 Lymph % (Auto) 7.9 Marin % (Auto) 1.3 Eos % (Auto) 0.3 Baso % (Auto) 0.4 Neut # (Auto) 5.98 Lymph # (Auto) 0.53 L Marin # (Auto) 0.09 L Eos # (Auto) 0.02 Baso # (Auto) 0.03 Immature Gran # (Auto) 0.04 H Echinocytes 1+ ESR PT INR APTT PTT Ratio Sodium 138 Potassium 3.5 Chloride 103 Carbon Dioxide 14 L Anion Gap 21 H BUN 119 H Creatinine 11.16 H* D Est Cr Clr Drug Dosing 8.4 Est GFR ( Amer) 5.1 Est GFR (Non-Af Amer) 4.4 BUN/Creatinine Ratio 10.7 Glucose 188 H Estimat Average Glucose 154 Hemoglobin A1c 7.0 H Calcium 8.5 Phosphorus 8.6 H Magnesium 1.7 Total Bilirubin 0.3 AST 10 L ALT 16 Alkaline Phosphatase 56 Troponin I High Sens C-Reactive Protein Total Protein 7.2 Albumin 3.9 Globulin 3.3 Albumin/Globulin Ratio 1.2 Triglycerides 115 Cholesterol 81 LDL Cholesterol, Calc 28 VLDL Cholesterol, Calc 23 HDL Cholesterol 30 Cholesterol/HDL Ratio 2.7 Prostate Specific Ag Urine Color Urine Appearance Urine pH Ur Specific [place] Urine Protein Urine Glucose (UA) Urine Ketones Urine Blood Urine Nitrite Urine Bilirubin Urine Urobilinogen Ur Leukocyte Esterase Urine WBC (Auto) Urine RBC (Auto) U Hyaline Cast (Auto) U Epithel Cells (Auto) Urine Bacteria (Auto) Granular Casts Urine Yeast SARS-CoV-2, RNA, NAAT 06/21/22 09:11 WBC RBC Hgb Hct MCV MCH MCHC RDW Std Deviation RDW Coeff of Jhonatan Plt Count MPV Immature Gran % (Auto) Neut % (Auto) Lymph % (Auto) Marin % (Auto) Eos % (Auto) Baso % (Auto) Neut # (Auto) Lymph # (Auto) Marin # (Auto) Eos # (Auto) Baso # (Auto) Immature Gran # (Auto) Echinocytes ESR PT INR APTT PTT Ratio Sodium Potassium Chloride Carbon Dioxide Anion Gap BUN Creatinine Est Cr Clr Drug Dosing Est GFR ( Amer) Est GFR (Non-Af Amer) BUN/Creatinine Ratio Glucose Estimat Average Glucose Hemoglobin A1c Calcium Phosphorus Magnesium Total Bilirubin AST ALT Alkaline Phosphatase Troponin I High Sens C-Reactive Protein Total Protein Albumin Globulin Albumin/Globulin Ratio Triglycerides Cholesterol LDL Cholesterol, Calc VLDL Cholesterol, Calc HDL Cholesterol Cholesterol/HDL Ratio Prostate Specific Ag 1.700 Urine Color Urine Appearance Urine pH Ur Specific [place] Urine Protein Urine Glucose (UA) Urine Ketones Urine Blood Urine Nitrite Urine Bilirubin Urine Urobilinogen Ur Leukocyte Esterase Urine WBC (Auto) Urine RBC (Auto) U Hyaline Cast (Auto) U Epithel Cells (Auto) Urine Bacteria (Auto) Granular Casts Urine Yeast SARS-CoV-2, RNA, NAAT Diagnostic Findings 06/20/22 renal US: Right kidney measures 14.1 x 7.5 x 6.5 cm. The left kidney measures 12.9 x 7.6 x 7.4 cm. No renal calculi, hydronephrosis or suspicious mass lesion. Cortical thickness is normal bilaterally. Unremarkable urinary bladder. Ureteral jets not identified. PG Care Time/CCT Total # of Minutes Spent Total Time Spent with Patient: Total time spent is greater than 50% in coordination of care (as documented) at patient's floor/unit and/or counseling patient: Coding Level of Care Code 27902 Inpt Consult Level 5 Diagnoses TISHA (acute kidney injury) N17.9 Chronic kidney disease (CKD) N18.9 Vision loss of right eye H54.61
--- NOTE | 2022-06-21 11:42 | Electrocardiogram Report ---
Test Reason : Blood Pressure : / mmHG Vent. Rate : 047 BPM Atrial Rate : 047 BPM P-R Int : 148 ms QRS Dur : 096 ms QT Int : 438 ms P-R-T Axes : 050 075 052 degrees QTc Int : 387 ms Sinus bradycardia Low voltage QRS Borderline ECG When compared with ECG of 05-DEC-2013 07:36, QRS duration has increased Criteria for Anteroseptal infarct are no longer Present Confirmed by Paolo Blank ([id number]) on 06/21/2022 11:42:09 AM Referred By: REFERRED SELF Confirmed By:Yandel Blank
--- NOTE | 2022-06-21 11:50 | Electrocardiogram Report ---
Test Reason : Blood Pressure : / mmHG Vent. Rate : 077 BPM Atrial Rate : 077 BPM P-R Int : 138 ms QRS Dur : 090 ms QT Int : 428 ms P-R-T Axes : 046 082 056 degrees QTc Int : 484 ms Sinus rhythm with Premature atrial complexes Prolonged QT Abnormal ECG When compared with ECG of 20-JUN-2022 17:53, (unconfirmed) Premature atrial complexes are now Present Vent. rate has increased BY 30 BPM QT has lengthened Confirmed by Paolo Blank ([id number]) on 06/21/2022 11:50:20 AM Referred By: REFERRED SELF Confirmed By:Yandel Blank
--- NOTE | 2022-06-21 12:02 | Surgery Consultation ---
Date of Consultation June 21, 2022 Assessment & Plan (1) Vision loss of right eye: This is a 61yM with a PMH of HTN, CKD, CAD with stents, HLD, obesity, back pain, who presents to the [facility] ED on 06/20/22 with complaints of R eye vision loss that he noticed upon waking up on Monday AM. He says this is associated with headaches and pain behind his right eye. He went to an paper ruler on Monday and per patient his eye exam was normal and he was referred to the ER to rule out stroke. Work up to rule out stroke included a brain MRI that showed no intracranial abnormality. Labs showed an elevated CRP to 1.1 and ESR 77. Nephrology is following for patient's TISHA with history of CKD. He has been started on steroid treatment since admission. We have been consulted to consider temporal artery biopsy. Unclear if symptoms related to temporal arteritis. Will await full workup prior to proceeding with surgical intervention. Could consider carotid dopplers and optho consultation here for their input and maybe repeat exam. Pending how things unfold we will place him on the schedule this admission vs he may follow up with us as outpt for elective scheduling. Supervising Physician Co-Signing Physician Notes Dr. Robertsonpatient with right eye blindness, apparently was a value by Dr. Whiting and Dr. Whiting sent him to the hospital for evaluation He is being worked up for an embolic episode-his echo appears to be relatively normal, carotid Doppler is pending I discussed temporal artery biopsy with the patient which would at least require sedation-this is not urgent-can proceed during this admission depending on how he does with his work-up or bring him back in in 1 to 2 weeks and proceed with outpatient biopsy History of Present Illness Attending Physician: Kristian Canseco DO History of Present Illness This is a 61yM with a PMH of HTN, CKD, CAD with stents, HLD, obesity, back pain, who presents to the [facility] ED on 06/20/22 with complaints of R eye vision loss. Patient reports going to bed Monday evening feeling fine and when he woke up on Monday morning he could not see out of his R eye. He says this is associated with headaches and pain behind his right eye. He went to an paper ruler on Monday and per patient his eye exam was normal and he was referred to the ER to rule out stroke. A brain MRI that showed no intracranial abnormality. He was admitted under the medicine service thereafter for further workup. Patient reports a history of stroke over 20 years ago he said was called "a mild stroke with severe vertigo". He denies any vertigo now, but says he is unsteady on his feet on occasion since that incident. Denies dizziness. No personal history of auto immune disease that he is aware of. When asked about his kidney issues he reports a recent history of dehydration where he did not pee for over 2 days and now has been drinking lots of gatorade and water. Allergies Allergy/AdvReac Type Severity Reaction Status Date / Time Penicillins Allergy Unknown CAN'T Verified 06/20/22 20:31 REMEMBER diclofenac AdvReac Intermediate Vomiting Verified 06/20/22 20:31 Home Medications Medication Instructions Recorded Confirmed Type amlodipine 10 mg tablet (Norvasc) 10 mg PO DAILY 05/07/21 06/20/22 History hydrochlorothiazide 25 mg tablet 25 mg PO DAILY 05/07/21 06/20/22 History lisinopril 40 mg tablet 40 mg PO DAILY 05/07/21 06/20/22 History nitroglycerin 0.4 mg sublingual 0.4 mg sublingual Q5M PRN Chest 05/07/21 06/20/22 History tablet (Nitrostat) Pain rosuvastatin 40 mg tablet 40 mg PO DAILY 05/07/21 06/20/22 History cilostazol 50 mg tablet 50 mg PO BID 06/18/21 06/20/22 History metoprolol tartrate 25 mg tablet 25 mg PO BID 08/13/21 06/20/22 History aspirin 81 mg tablet,delayed 81 mg PO DAILY 06/20/22 06/20/22 History release cholecalciferol (vitamin D3) 125 250 mcg PO DAILY 06/20/22 06/20/22 History mcg (5,000 unit) tablet (Vitamin D3) coenzyme Q10 100 mg capsule 100 mg PO DAILY 06/20/22 06/20/22 History (CoQ-10) omega-3 fatty acids 1,000 mg 1,000 mg PO DAILY 06/20/22 06/20/22 History capsule Patient History Medical History Coronary artery disease CVA (cerebral vascular accident) Hyperlipidemia Surgical History History of appendectomy History of cardiac cath Stented coronary artery Family History Mother Cardiovascular disease Social History Smoking Status: Former smoker Tobacco Type: Cigarettes Age Quit Using Tobacco: 53; packs per day: 1; Years Smoked: 35; Number of Years Since Quit: 7; Hx Alcohol Use: Yes Alcohol type: beer Hx Substance Use: No Preferred Language: Japanese [place] 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 Beliefs That Will Affect Care: None Current Living Situation: Spouse Feels Safe at Home: Yes Assistive Devices: Glasses Assistive Devices Comment: glasses not with patient Review of Systems Eyes: + eye pain (behind R eye) and + problem reported (loss of vision in R eye) Neurologic: + headache(s); no localized weakness, no generalized weakness and no dizziness Physical Exam Physical Exam: awake/alert, no acute distress Eyes: loss of vision in R eye Respiratory: normal respiratory effort Results & Data ([facility]) Vital Signs (Past 12 Hours) Vital Signs Temp Pulse Pulse Resp BP Pulse Ox O2 Del Method 06/21/22 07:40 80 06/21/22 03:18 86 06/21/22 03:00 37 C 87 14 134/73 98 Room Air 06/21/22 02:12 62 18 132/64 96 Room Air Diagnostic Findings Brain MRI WITHOUT CONTRAST HISTORY: Right eye vision loss. TECHNIQUE: Multiplanar multisequence MRI of the brain was performed without the use of contrast. COMPARISON STUDY: Brain MRI 01/28/2008. FINDINGS: There are no areas of restricted diffusion to suggest acute infarction. The midline structures are intact. The paranasal sinuses demonstrate mild mucosal thickening. The mastoid air cells are clear. The ventricles and sulci are within normal limits for age. There is no mass, hematoma, midline shift. The major vascular flow-voids at the skull base are well maintained. A cavum septum callosum is again noted. IMPRESSION: No significant change compared to the prior study. No acute intracranial abnormality. ACT 112: Negative or not required by law. Electronically signed by: [place] M.D. 06/21/2022 7:14 AM PG Care Time/CCT Total # of Minutes Spent Total Time Spent with Patient: Total time spent is greater than 50% in coordination of care (as documented) at patient's floor/unit and/or counseling patient: Coding Level of Care Code 92159 Inpt Consult Level 1 Diagnoses Vision loss of right eye H54.61
[2022-06-21] MEDS: methylPREDNISolone 1,000 MG in DEXTROSE 5% 250 ML IV SCH (12:17)
[2022-06-21 12:25] LABS: BUN Creatinine Ratio 11.6 (10-20); Calcium 8.5 mg/dl (8.5-10.1); Creatinine Clr Calc Pharmacy 9.3 ml/min; Est GFR (African American) 5.9 ml/min; Est GFR (Non-African American) 5.1 ml/min; Potassium 3.3 mmol/L (3.5-5.1)
[2022-06-21 13:52] LABS: Creatinine Urine Random 88.8 mg/dl
[2022-06-21] MEDS ORDERED: ONDANSETRON INJ 2 MG/ML 2 ML VIAL IV PRN (16:55)
[2022-06-21 17:04] LABS: BUN Creatinine Ratio 11.9 (10-20); Calcium 8.4 mg/dl (8.5-10.1); Creatinine Clr Calc Pharmacy 10.2 ml/min; Est GFR (African American) 6.5 ml/min; Est GFR (Non-African American) 5.6 ml/min
--- NOTE | 2022-06-21 17:17 | Ultrasound Report ---
ULTRASOUND OF THE CAROTID ARTERIES CLINICAL HISTORY: Vision loss. COMPARISON STUDY: No priors. TECHNIQUE: Real-time, grayscale, and color Doppler sonography of the carotid arteries is performed. I mages are reviewed in the transverse and longitudinal planes. FINDINGS: The carotid arteries are patent bilaterally and demonstrate antegrade flow. There is moderate atheros clerotic plaque seen bilateral. Normal doppler arterial waveforms are seen throughout. Velocity measu rements are listed below. Common carotid peak systolic velocity (cm/sec): RIGHT: 61 LEFT: 192 ICA proximal peak systolic velocity (cm/sec): RIGHT: 89 LEFT: 63 ICA mid peak systolic velocity (cm/sec): RIGHT: 73 LEFT: 50 ICA distal peak systolic velocity (cm/sec): RIGHT: 69 LEFT: 53 ICA/CC peak systolic ratio: RIGHT: 1.5 LEFT: 0.3 Antegrade flow was shown in the vertebral arteries. The external carotid arteries are patent. Elevate d within the external carotid arteries bilaterally suggests some degree of stenosis. IMPRESSION: 1. Atherosclerotic plaque with no sonographic evidence of hemodynamically significant stenosis in the right carotid arterial system. 2. There are elevated velocities within the left common carotid artery suggesting some degree of sten osis. 3. There is no sonographic evidence of hemodynamically significant stenosis involving the left product management intern al carotid artery by velocity criteria. 4. Antegrade flow is shown in the vertebral arteries. 5. Elevated velocities within the external carotid arteries also likely indicates some degree of sten osis ACT 112: Negative or not required by law. Electronically signed by: Luis Alfredo Crowley M.D. 06/21/2022 5:15 PM
[2022-06-21] MEDS ORDERED: POTASSIUM CHLORIDE CRTAB 20 MEQ TABCR PO STA (17:42)
--- NOTE | 2022-06-21 18:31 | Billing Data ---
Date of Service June 21, 2022 Coding Level of Care Code 01372 Subseq Hosp Care Lvl 3
--- NOTE | 2022-06-21 18:34 | Billing Data ---
Date of Service June 21, 2022 Coding Level of Care Code 50318 Subseq Hosp Care Lvl 3
[2022-06-21] MEDS: D5W AND 1/2NSS + 20MEQ KCL 20 MEQ/1,000 ML BAG IV SCH (21:33)
[2022-06-21] MEDS: HEPARIN SOD 5,000 UNIT/0.5 ML VIAL SQ SCH ×2 (21:33→21:35)
[2022-06-22] MEDS: D5W AND 1/2NSS + 20MEQ KCL 20 MEQ/1,000 ML BAG IV SCH (03:58)
[2022-06-22 05:52] LABS: Hematocrit (blood only) 34.8 % (40.1-51.0); Mean Corpuscular Hemoglobin 29.2 pg (25.0-34.0); Mean Corpuscular Hgb Conc 34.5 g/dL (32.0-36.0); Mean Corpuscular Volume 84.7 fL (80.0-100.0); Mean Platelet Volume 9.9 fL (9.4-12.4); Platelet Count 293 K/uL (130-400); RDW Standard Deviation 49.9 fL (36.4-46.3); Red Blood Count 4.11 M/uL (4.63-6.08); White Blood Count 12.42 K/ul (4.8-10.8)
[2022-06-22 06:24] LABS: Basophils # (auto) 0.01 K/uL (0-0.2); Basophils % (auto) 0.1 %; Immature Granulocytes # (auto) 0.08 K/uL (0.00-0.02); Immature Granulocytes % (auto) 0.6 %; Lymphocytes # (auto) 0.77 K/uL (1.2-3.4); Lymphocytes % (auto) 6.2 %; Monocytes # (auto) 0.22 K/uL (0.24-0.82); Monocytes % (auto) 1.8 %; Neutrophils # (auto) 11.34 K/uL (1.4-6.5); Neutrophils % (auto) 91.3 %; RBC Morphology Unremarkable
[2022-06-22 06:25] LABS: BUN Creatinine Ratio 13.5 (10-20); C Reactive Protein 0.53 mg/dl (0-0.5); Calcium 8.3 mg/dl (8.5-10.1); Creatinine Clr Calc Pharmacy 11.8 ml/min; Est GFR (African American) 7.8 ml/min; Est GFR (Non-African American) 6.7 ml/min; Potassium 3.4 mmol/L (3.5-5.1)
--- NOTE | 2022-06-22 07:22 | Surgery Progress Note ---
Date of Service June 22, 2022 Assessment & Plan (1) Vision loss of right eye: Plan: Can proceed tomorrow/ with right temporal artery biopsy under local sedation I have some concern with the patient's continued high BUN and creatinine-his urine output does seem to be improving His carotid duplex did not show significant stenosis We will see what the medical team feels as far as his stability to undergo sedation-could otherwise delay the temporal artery biopsy But would probably be best to perform within the next 1 to 2 weeks-we will continue him on his steroids as appropriate I have tentatively added him on for tomorrow Admission and Anticipated Discharge Date Admission Date: June 21, 2022 Results & Data ([facility]) Vital Signs (Past 12 Hours) Vital Signs Temp Pulse Resp BP Pulse Ox O2 Del Method 06/22/22 03:00 Room Air 06/22/22 03:20 36.3 C L 85 20 135/66 94 Room Air 06/21/22 22:59 36.7 C 76 20 111/67 92 Room Air 06/21/22 19:34 36.8 C 96 H 20 152/73 H 99 Room Air PG Care Time/CCT Total # of Minutes Spent Total Time Spent with Patient: Total time spent is greater than 50% in coordination of care (as documented) at patient's floor/unit and/or counseling patient: Coding Level of Care Code None Diagnoses Vision loss of right eye H54.61
[2022-06-22] MEDS: methylPREDNISolone 1,000 MG in DEXTROSE 5% 250 ML IV SCH (07:34)
[2022-06-22] MEDS: HEPARIN SOD 5,000 UNIT/0.5 ML VIAL SQ SCH ×2 (07:35→20:28)
[2022-06-22] MEDS: cilostazoL 100 MG TAB PO SCH ×2 (07:35→20:27)
[2022-06-22] MEDS: ROSUVASTATIN CALCIUM 20 MG TAB PO SCH (07:35)
[2022-06-22] MEDS: SEVELAMER HCL 800 MG TABLET PO SCH ×3 (07:35→16:01)
--- NOTE | 2022-06-22 08:22 | Nephrology Progress Note ---
Date of Service June 22, 2022 Assessment & Plan (1) TISHA (acute kidney injury): Plan: * TISHA likely ATN due to dehydration in the setting of SEAN inhibitor therapy * Hold Lisinopril and HCTZ * Patient denies use of Diclofenac or OTC NSAID since last Nephrology OV 08/10 * Continue 0.9NS at 100 cc/hr * Keep Davis catheter in place. I&O's have been matched since admission * Renal US was negative for obstruction, PSA < 4.0 * Monitor PRP (2) Chronic kidney disease (CKD): Plan: * CKD stage G3/A2 (moderate impairment). Baseline Cr 1.4 - 1.8 w/ EGFR 39 cc/min. Prior evaluation revealed acellular urine sediment. UPCR 0.8. 08/10 renal US - R 13 cm, L 11.3 cm, no hydronephrosis/mass/stone. Renal impairment was attributed to microvascular disease, hypertensive nephrosclerosis and chronic NSAID use (3) Vision loss of right eye: Plan: * 06/21/22 carotid doppler - negative for significant stenosis * Await results of echocardiogram * Primary service considering temporal artery biopsy (4) Abdominal bruit: Plan: * Will order US aorta w/ doppler and ask that they include the proximal renal arteries Admission and Anticipated Discharge Date Admission Date: June 21, 2022 Subjective Mr. Meyer was evaluated in his hospital room this morning. He is tolerating IV hydration without dyspnea or angina. He voices no new medical concerns. Review of Systems Constitutional: + weakness; no fever Eyes: + eye pain and + problem reported (loss of vision R eye) Ear, Nose, Mouth, Throat: + dry mouth Respiratory: no cough and no dyspnea Cardiovascular: no chest pain Gastrointestinal: no abdominal pain Genitourinary: + decreased urination Physical Exam 2 Constitutional: + overweight; not in distress Eyes: + dilated pupils (R) ENMT: Mouth: + dry oral mucous membranes Respiratory: normal respiratory effort, lungs clear to auscultation Cardiovascular: RRR, no murmur, no edema Gastrointestinal (Abdomen): normal bowel sounds, soft, nontender, no hepatosplenomegaly + abdominal bruit Skin: + turgor decreased Neurologic: awake; not confused Results & Data ([facility]) Vital Signs (Past 12 Hours) Vital Signs Temp Pulse Pulse Resp BP Pulse Ox O2 Del Method 06/22/22 07:12 36.6 C 91 H 20 114/58 L 94 Room Air 06/22/22 03:00 Room Air 06/22/22 03:20 36.3 C L 85 20 135/66 94 Room Air 06/21/22 22:59 36.7 C 76 20 111/67 92 Room Air Laboratory Results Laboratory Tests 06/20/22 06/22/22 18:15 05:33 Sodium 140 Potassium 3.4 L Chloride 104 Carbon Dioxide 22 BUN 107 H Creatinine 13.24 H* 7.95 H* D Glucose 233 H Calcium 8.3 L PG Care Time/CCT Total # of Minutes Spent Total Time Spent with Patient: Total time spent is greater than 50% in coordination of care (as documented) at patient's floor/unit and/or counseling patient: Coding Level of Care Code 60680 Subseq Hosp Care Lvl 3 Diagnoses TISHA (acute kidney injury) N17.9 Chronic kidney disease (CKD) N18.9 Vision loss of right eye H54.61 Abdominal bruit R09.89
[2022-06-22] MEDS: ASPIRIN 81 MG ECTAB PO SCH (08:51)
--- NOTE | 2022-06-22 09:57 | Hospitalist Progress Note ---
Date of Service June 22, 2022 Assessment & Plan (1) Vision loss of right eye: Plan: 61yo male with a history of HTN, HLD, CAD s/p RCA stent (x2, done in 2013), CKD3 (baseline creatinine ~2.0) presents with a two-day history of right-sided vision loss and right eye pain in the setting of a two-week history of nausea, vomiting, diarrhea, and poor PO intake. Sudden-onset right-sided vision loss and eye pain MRI brain: no acute intracranial pathology, minimal nonspecific white matter changes, chronic ethmoid sinusitis Labs notable for ARF (see below) and elevated ESR/CRP; hsTroponin not elevated Differential includes temporal arteritis which is most likely, less suspicion for glaucoma or cardioembolic event Echocardiogram- EF 65-70%, no WMA, grade 1 diastolic dysfunction noted Carotid doppler without significant stenoses Neuro checks spaced q2h to q4h Continue high dose IV methylprednisolone 1000 mg daily at this time ESR, CRP downtrending. Mild leukocytosis 6.7 to 12.4 likely due to steroids General surgery consulted- temporal artery biopsy scheduled for 06/23 Discussed case with pt's technical architect 06/22 -Optic nerve findings typical of GCA not seen -Suspect potential ophthalmic artery occlusion- will continue secondary risk reduction- cilostazol, aspirin, high-intensity statin Acute renal failure, history of CKD3 Creatinine on admission 13.24 (baseline ~2.0) Etiology unclear at this time- may be due to fluid losses from recent possible GI illness in setting of CKD Renal ultrasound unremarkable for obstruction Holding lisinopril and HCTZ Davis catheter in place Nephrology consulted 06/21 and following -Suspect TISHA due to ATN 2/2 dehydration in setting of ACEI therapy -Continue aggressive fluid repletion, rate decreased today- NSS @ 100 ml/hr Cr improving with IVF- 7.95 today Trend BMP Hypokalemia Mild hypokalemia 3.4 likely secondary to acute renal failure Continue KCl oral supplementation Trend BMP Nausea, vomiting, diarrhea, poor PO intake Two week history of the above symptoms though with some improvement over past day- possible viral GI illness which precipitated ARF Improving PO tolerance, continue IVF + Zofran PRN Trend BMP Hypertension BP slightly soft on arrival, slightly hypertensive afterwards, BP then normalized Hold home regimen due to ARF Continue to monitor Hyperlipidemia Continue home rosuvastatin 40 mg Home ASA held Repeat lipid profile wnl Diabetes -HbA1c 7.0% -Appears to be new diagnosis though well-controlled at present, BSGs wnl -F/u with PCP for diabetic regimen FEN: Heart healthy diet, NSS @ 100 mL/hr Code status: full code DVT ppx: Heparin SQ BID Consults: nephrology, general surgery Dispo: med/telemetry (2) Acute renal failure: (3) TISHA (acute kidney injury): (4) Chronic kidney disease (CKD): (5) Coronary artery disease: (6) Hyperlipidemia: (7) Hypertension: (8) Obesity: Admission and Anticipated Discharge Date Admission Date: June 21, 2022 Supervising Physician Co-Signing Physician Notes I personally examined the patient and verified all tang points of history and exam, discussed case, and agree with decision making with Dr Robles Headache significantly better. No recovery of vision in right eye. Case discussed with ophthalmology, input greatly appreciated. Vitals noted, in general he is awake and alert pleasant no distress. HEENT normocephalic atraumatic mucous membranes moist. Breathing unlabored no accessory muscle use good effort. No other focal neuro deficits beyond right eye vision loss. No facial droop no arm weakness etc. Otherwise exam as above. Right eye blindnessgiven headache elevated sed rate paindifferentials definitely favor giant cell arteritis/temporal arteritis. Far less likely to be ischemic vascular diseasealthough until giant cell arteritis is proven, a small arterial atherosclerotic occlusion cannot be definitively ruled out. No carotid embolic or cardioembolic source appears likelyhe does have vascular risks, but they seem to be overall well managed with his home regimen. For biopsy in the near future, continue corticosteroids, serial exams. Acute renal failurenot obstructive based on renal ultrasound. To that end, probably dehydration and diarrhea compounding dehydration causing a fairly severe ATN type picture. Fortunately is improving Type 2 diabeteslikely will be good with lifestyle change given that his A1c is only 7.0. DVT prophylaxisHeparin subcu Otherwise as above Subjective No acute events overnight. Pt reports he still cannot see at all from R eye, though his headache has resolved. Continues to deny jaw pain, fever, chills, abdominal or chest pain. Able to tolerate PO intake without issue, however he does report some nausea y esterday and did throw up a few of his medications. Denies nausea at present. Review of Systems Review of Systems: Per subjective Physical Exam Physical Exam: Constitutional: well-appearing, no acute distress, obese HEENT: NCAT, EOMI, anicteric sclerae, no conjunctival injection, right synagogue tender to palpation, no jaw tenderness CV: RRR, normal S1/S2, no murmur appreciated, extremities well-perfused, no LE edema Resp: CTAB, no wheezes/rales/rhonchi appreciated, no increased work of breathing GI: soft, nondistended, nontender MSK: no gross deformities appreciated Skin: warm, dry, no rash appreciated Neuro: alert, oriented, pupils constrict to light though R afferent pupillary defect, total loss of R vision with complete R visual field deficits, 5/5 strength of b/l LE and UE, no sensory deficits Results & Data Results & Data ([facility]) Vital Signs (Past 12 Hours) Vital Signs Temp Pulse Pulse Resp BP Pulse Ox O2 Del Method 06/22/22 07:12 36.6 C 91 H 20 114/58 L 94 Room Air 06/22/22 03:00 Room Air 06/22/22 03:20 36.3 C L 85 20 135/66 94 Room Air 06/21/22 22:59 36.7 C 76 20 111/67 92 Room Air Resident Activity Tracking Resident Involvement: Resident Care Provided Care Provided: Adult Hospital Medicine
[2022-06-22] MEDS: SODIUM CHLORIDE 0.9% 1000ML 1,000 ML IV SCH ×2 (10:44→20:28)
--- NOTE | 2022-06-22 12:17 | Ultrasound Report ---
US aorta duplex CLINICAL HISTORY: abdominal bruit COMPARISON STUDY: None. FINDINGS: Real-time sonographic imaging of the aorta was performed with human resources representative images submitt ed. The proximal and distal abdominal aorta obscured by overlying bowel gas. The mid abdominal aorta is normal in caliber measuring 1.9 cm. The iliac arteries are not identified due to the overlying bow el gas. IMPRESSION: The proximal and distal abdominal aorta were obscured by overlying bowel gas. There is a normal caliber mid abdominal aorta. ACT 112: Negative or not required by law. Electronically signed by: [place] M.D. 06/22/2022 12:16 PM
--- NOTE | 2022-06-22 12:19 | Ultrasound Report ---
US duplex renal artery CLINICAL HISTORY: ABDOMINAL BRUIT COMPARISON STUDY: Renal ultrasound 06/20/2022. FINDINGS: The proximal and mid bilateral renal arteries were obscured by overlying bowel gas. The dis niki right renal artery demonstrates a peak systolic velocity of 162 cm/s. The distal left renal arter y demonstrates a peak systolic velocity of 138 cm/s. Resistive indices of the bilateral renal arcuate arteries are less than 0.8. The bilateral renal veins are patent. IMPRESSION: The proximal and mid bilateral renal arteries were obscured by overlying bowel gas. No s ignificant stenosis within the distal bilateral renal arteries. ACT 112: Negative or not required by law. Electronically signed by: Mt Rose M.D. 06/22/2022 12:18 PM
[2022-06-22 15:37] LABS: BUN Creatinine Ratio 15.1 (10-20); Calcium 8.1 mg/dl (8.5-10.1); Creatinine Clr Calc Pharmacy 13.1 ml/min; Est GFR (African American) 8.8 ml/min; Est GFR (Non-African American) 7.6 ml/min; Potassium 3.8 mmol/L (3.5-5.1)
--- NOTE | 2022-06-22 18:03 | Billing Data ---
Date of Service June 22, 2022 Coding Level of Care Code 00179 Subseq Hosp Care Lvl 3
--- NOTE | 2022-06-23 01:07 | Billing Data ---
Date of Service June 23, 2022 Coding Level of Care Code 69834 Initial Inpt Care Lvl 3
--- NOTE | 2022-06-23 03:45 | Consultation Report ---
OPHTHALMOLOGY CONSULTATION NOTE DATE OF SERVICE: 06/22/2022 CHIEF COMPLAINT AND HISTORY OF PRESENT ILLNESS: This is a 61-year-old male with a medical history of hypertension, hyperlipidemia, coronary artery disease and a remote history of a cerebrovascular acci dent who presented to our outside office originally on 06/20/2022 for a 2-day history of complete vis ion loss in the right eye. He stated that for the two weeks preceding his visual symptoms, he report ed nausea, vomiting, fevers, chills, and weight loss. He woke up in the morning on 06/19/2022 and de scribed his right eye vision as "black." He might have been able to see some shadows initially, but r eported that the vision went "completely black" over the course of the day. He noted pain in the rig ht jehovah's witness and behind the right eye that started that morning as well. He has no prior history of eye disease. In our office, his eye exam was remarkable for no light perception vision in the right eye , normal eye pressures, a right afferent pupillary defect, and his dilated exam did not show any pall id disc edema, retinal hemorrhage or macular pathology. His left eye exam was unremarkable. He was told to go emergently to the [facility] Emergency Department to rule out stroke and to work up for possible giant cell arteritis. Upon reexamination today, he reports that his vision has not improved at all since admission, but his headache and pain behind the eye have greatly improv ed since he has been on IV steroid. PAST MEDICAL HISTORY: Remarkable for hypertension, coronary artery disease status post stenting, hyp erlipidemia, chronic kidney disease. PAST SURGICAL HISTORY: Remarkable for coronary stenting and an appendectomy. MEDICATIONS: Please see medication list. ALLERGIES: PENICILLIN, DICLOFENAC. SOCIAL HISTORY: Lives with . He is a past smoker. PHYSICAL EXAMINATION: His eye exam, his visual acuity at near with his reading glasses is no light p erception in the right eye and 20/50 in the left eye. His intraocular pressures were 20 in the right eye and 21 in the left eye. His pupils, the right pupil was about 5 mm, very sluggishly reactive to light, and did show an afferent pupillary defect. The left pupil was 5 mm and reacted briskly to 4 mm. His extraocular movements are full in both eyes. His confrontational visual pike are full in the left eye and again no light perception in the right eye. His anterior segment exam on the right shows lids, lashes, and lacrimal glands to be within normal limits. His conjunctiva shows trace inje ction. His cornea appears clear. The iris appears normal. The anterior chamber is deep and formed and the lens shows mild nuclear sclerosis. On the left eye, the lids, lashes, and lacrimal glands ar e within normal limits. He does have trace bulbar conjunctival injection. The cornea is clear. The iris is within normal limits. The anterior chamber is deep and formed and the lens is remarkable fo r mild nuclear sclerosis. His dilated fundus exam on the right shows a cup-to-disc ratio of 0.2. Ma cula, vessels, and peripheral retina, all appear within normal limits. There is no disk edema or dis k pallor on exam. The dilated fundus exam on the left eye shows a cup-to-disc ratio of 0.2. There i s a cotton wool spot along the superotemporal arcade coming off of the optic disc. The remaining ves sels, macula, and peripheral retina, all appear within normal limits. LABORATORY DATA: His sedimentation rate is 65, which has decreased compared to his 77 on admission. His C-reactive protein has decreased from 1.15 on admission to 0.53 today. Imaging was reviewed. T he carotid Dopplers showed an atherosclerotic plaque on the right, but no hemodynamically significant stenosis on either side. The MRI of the brain showed no acute infarct and no mass. The echocardiog kati showed a normal ejection fraction and grade 1 diastolic dysfunction. ASSESSMENT AND PLAN: This is a 61-year-old male with right eye vision loss. There is concern for gi ant cell arteritis given his degree of vision loss, afferent pupillary defect on the right, jehovah's witness pa in and headache, and pain behind the right eye, along with elevated erythrocyte sedimentation rate, a nd C-reactive protein. The nausea, vomiting, fevers, and weight loss preceding his vision symptoms a lso fit the potential picture for giant cell arteritis. Interestingly, there is no pallid disc edema on exam today, nor was there any on his initial presentation to our office on 06/20/2022. I agree w ith the primary team's treatment, which is an initial 3 days of IV methylprednisolone 1 g and then sw itching to prednisone oral 80-100 mg daily until the results of the temporal artery biopsy are return ed. If it is biopsy positive, he will need a longer term steroid taper to be managed either by his [facility] physician or rheumatology. If negative, a more rapid taper can be done. I did discuss with rivas mancini the poor prognosis for visual recovery, but steroids at this point are being used to prevent poten tial vision loss in his left eye. We discussed that the other items in the differential could includ e an ophthalmic artery occlusion given his vasculopathic history. An MR angiogram or CT angiogram ma y be useful to help determine if there is any significant blockage or stenosis, but could not be done at this time due to his acute kidney injury. His MRI and carotids do not show any significant patho logy that needs acted upon at this point. I will plan to follow him up as an outpatient within 1-2 w eeks of discharge. The results of this consultation were communicated with his primary team in the [facility]spital. Thank you for this consult. Job ID: [id number]
--- NOTE | 2022-06-23 06:46 | Surgery Progress Note ---
Date of Service June 23, 2022 Assessment & Plan (1) Vision loss of right eye: Plan: Proceeding with temporal artery biopsy on the right side today No acute changes in the last 24 hours Admission and Anticipated Discharge Date Admission Date: June 21, 2022 Results & Data ([facility]) Vital Signs (Past 12 Hours) Vital Signs Temp Pulse Pulse Resp BP Pulse Ox O2 Del Method 06/23/22 03:58 36.9 C 66 18 119/67 93 Room Air 06/22/22 22:57 36.8 C 67 20 114/66 93 Room Air 06/22/22 22:20 70 06/22/22 19:48 36.7 C 70 18 112/64 97 Room Air PG Care Time/CCT Total # of Minutes Spent Total Time Spent with Patient: Total time spent is greater than 50% in coordination of care (as documented) at patient's floor/unit and/or counseling patient: Coding Level of Care Code None Diagnoses Vision loss of right eye H54.61
[2022-06-23 07:03] LABS: Hematocrit (blood only) 31.8 % (40.1-51.0); Hemoglobin 10.5 g/dl (14.0-18.0); Mean Corpuscular Hemoglobin 28.6 pg (25.0-34.0); Mean Corpuscular Volume 86.6 fL (80.0-100.0); Mean Platelet Volume 9.5 fL (9.4-12.4); Platelet Count 268 K/uL (130-400); RDW Coefficient of Variation 16.7 % (11.5-14.5); RDW Standard Deviation 53.1 fL (36.4-46.3); Red Blood Count 3.67 M/uL (4.63-6.08); White Blood Count 13.07 K/ul (4.8-10.8)
[2022-06-23 07:43] LABS: BUN Creatinine Ratio 17.3 (10-20); Calcium 7.7 mg/dl (8.5-10.1); Creatinine Clr Calc Pharmacy 15.6 ml/min; Est GFR (African American) 10.9 ml/min; Est GFR (Non-African American) 9.4 ml/min; Potassium 3.9 mmol/L (3.5-5.1)
[2022-06-23] MEDS ORDERED: ONDANSETRON INJ 2 MG/ML 2 ML VIAL IV PRN (07:43)
[2022-06-23] MEDS ORDERED: ATROPINE SULFATE 0.1 MG/ML 10ML SYR IV PRN (07:43)
[2022-06-23] MEDS ORDERED: fentaNYL citrate 100 MCG/2 ML VIAL IV PRN (07:43)
[2022-06-23] MEDS ORDERED: ePHEDrine sulfate 50 MG/ML AMP IV PRN (07:43)
--- NOTE | 2022-06-23 07:43 | Anesthesiology Consultation ---
Date of Service June 23, 2022 Assessment & Plan (1) Encounter for pre-operative examination: Chart Review Chart Review: Acceptable Risk for Surgery and Patient NOT seen in Pre Admission Testing Consults Requested none History Surgery Operation Date: 06/23/22 08:15 Proposed Procedures p Right Temporal Artery Biopsy - Delonte Robertson MD, FACS Height/Weight Height: 5 ft 8 in Weight: 105.9 kg Allergies Allergy/AdvReac Type Severity Reaction Status Date / Time Penicillins Allergy Unknown CAN'T Verified 06/20/22 20:31 REMEMBER diclofenac AdvReac Intermediate Vomiting Verified 06/20/22 20:31 Medications Home Medications Medication Instructions Recorded Confirmed Last Taken amlodipine 10 mg tablet (Norvasc) 10 mg PO DAILY 05/07/21 06/20/22 06/20/22 hydrochlorothiazide 25 mg tablet 25 mg PO DAILY 05/07/21 06/20/22 06/20/22 lisinopril 40 mg tablet 40 mg PO DAILY 05/07/21 06/20/22 06/20/22 nitroglycerin 0.4 mg sublingual 0.4 mg sublingual Q5M PRN Chest 05/07/21 06/20/22 Unknown tablet (Nitrostat) Pain rosuvastatin 40 mg tablet 40 mg PO DAILY 05/07/21 06/20/22 06/20/22 cilostazol 50 mg tablet 50 mg PO BID 06/18/21 06/20/22 06/20/22 08:00 metoprolol tartrate 25 mg tablet 25 mg PO BID 08/13/21 06/20/22 06/20/22 08:00 aspirin 81 mg tablet,delayed 81 mg PO DAILY 06/20/22 06/20/22 06/20/22 release cholecalciferol (vitamin D3) 125 250 mcg PO DAILY 06/20/22 06/20/22 06/20/22 mcg (5,000 unit) tablet (Vitamin D3) coenzyme Q10 100 mg capsule 100 mg PO DAILY 06/20/22 06/20/22 06/20/22 (CoQ-10) omega-3 fatty acids 1,000 mg 1,000 mg PO DAILY 06/20/22 06/20/22 06/20/22 capsule Active Medications Generic Name Dose Route Start Last Admin Trade Name Freq PRN Reason Stop Dose Admin Acetaminophen 1,000 mg 06/21/22 09:32 06/21/22 16:48 Acetaminophen 500 Mg Tab PO 07/21/22 09:31 1,000 mg Q6H PRN Administration pain, headache Aspirin 81 mg 06/22/22 09:00 06/22/22 08:51 Aspirin 81 Mg Ectab PO 07/22/22 08:59 81 mg QAM DANA Administration Cilostazol 50 mg 06/21/22 09:00 06/22/22 20:27 Cilostazol 100 Mg Tab PO 07/21/22 08:59 50 mg BID DANA Administration Heparin Sodium (Porcine) 5,000 units 06/21/22 21:00 06/22/22 20:28 Heparin Sod 5,000 Unit/0.5 Ml Vial SQ 07/21/22 20:59 5,000 units Q12 DANA Administration Methylprednisolone 1,000 mg/ 266 mls @ 266 mls/hr 06/21/22 12:00 06/22/22 08:44 Dextrose IV 06/23/22 09:59 Infused DAILY DANA Infusion Ondansetron HCl 4 mg 06/21/22 16:55 06/22/22 03:04 Ondansetron Inj 2 Mg/Ml 2 Ml Vial IV 07/21/22 16:54 4 mg Q6H PRN Administration Nausea And Vomiting Rosuvastatin Calcium 40 mg 06/21/22 09:00 06/22/22 07:35 Rosuvastatin Calcium 20 Mg Tab PO 07/21/22 08:59 40 mg DAILY DANA Administration Sevelamer HCl 800 mg 06/21/22 08:00 06/22/22 16:01 Sevelamer Hcl 800 Mg Tablet PO 07/21/22 07:59 Not Given TIDM DANA NPO Date Last Intake of Fluids: 06/22/22 Time Last Intake of Fluids: 23:00 Date Last Intake of Solids: 06/22/22 Time Last Intake of Solids: 17:00 Past Medical History Medical History Coronary artery disease CVA (cerebral vascular accident) Hyperlipidemia Past Family History Family History Mother Cardiovascular disease Past Surgical History Surgical History History of appendectomy History of cardiac cath Stented coronary artery Social History Smoking Status: Former smoker Hx Alcohol Use: Yes Alcohol type: beer alcohol intake frequency: a few times a week Hx Substance Use: No Physical Exam Vital Signs Last Vital Signs Temp 98.4 F 06/23/22 03:58 Pulse 83 06/23/22 06:56 Resp 18 06/23/22 03:58 BP 119/67 06/23/22 03:58 Pulse Ox 93 06/23/22 03:58 O2 Del Method 06/23/22 03:58 Testing Laboratory Results 06/23/22 06:50 PT 11.0 Seconds (9.0-12.0) 06/20/22 18:15 INR 1.0 (0.9-1.1) 06/20/22 18:15 APTT 27.1 Seconds (21.0-31.0) 06/20/22 18:15 Hemoglobin A1c 7.0 % (4.5-5.6) H 06/21/22 05:33 Urine Color Yellow 06/20/22 21:43 Urine Appearance Clear (Clear) 06/20/22 21:43 Urine pH 5.0 (4.5-7.5) 06/20/22 21:43 Ur Specific Hume 1.013 (1.000-1.030) 06/20/22 21:43 Urine Protein 1+ (Negative) H 06/20/22 21:43 Urine Glucose (UA) Negative (Negative) 06/20/22 21:43 Urine Ketones Negative (Negative) 06/20/22 21:43 Urine Nitrite Negative (Negative) 06/20/22 21:43 Ur Leukocyte Esterase Negative (Negative) 06/20/22 21:43 Urine WBC (Auto) 1-5 /hpf (0-5) 06/20/22 21:43 Urine RBC (Auto) 0-4 /hpf (0-4) 06/20/22 21:43 U Hyaline Cast (Auto) 1-5 /lpf (0-5) 06/20/22 21:43 U Epithel Cells (Auto) 20-30 /lpf (0-5) H 06/20/22 21:43 Urine Bacteria (Auto) Negative (Negative) 06/20/22 21:43 06/20/22 21:43 Urine Culture - Preliminary Urine,Clean Catch No growth - Less than 1,000 colonies/mL, Final report to follow. Electrocardiogram Date: 06/21/22 Findings: + ROMULO @ (PACs)
[2022-06-23] MEDS ORDERED: LIDOCAINE 2% MPF LOCAL 5 ML VIAL INFIL ONE ×2 (07:47)
[2022-06-23] MEDS: SEVELAMER HCL 800 MG TABLET PO SCH ×3 (07:57→17:41)
[2022-06-23] MEDS: HEPARIN SOD 5,000 UNIT/0.5 ML VIAL SQ SCH ×2 (07:57→21:07)
[2022-06-23] MEDS ORDERED: PROPOFOL IV EMULSION 10 MG/ML 20 ML VIAL IV ONE ×3 (08:03→08:06)
[2022-06-23] MEDS ORDERED: MIDAZOLAM HCL 1 MG/ML 2ML VIAL ONE (08:10)
[2022-06-23] MEDS ORDERED: DexMEDEtomidine HCL IV 100 MCG/ML VIAL IV ONE (08:12)
[2022-06-23] MEDS ORDERED: LIDOCAINE 1% LOCAL 20 ML VIAL ONE (08:13)
[2022-06-23] MEDS ORDERED: fentaNYL citrate 100 MCG/2 ML VIAL ONE (08:38)
[2022-06-23] MEDS ORDERED: ceFAZolin 330 MG/ML 1 GM VIAL ONE ×2 (08:39)
[2022-06-23] MEDS ORDERED: ONDANSETRON INJ 2 MG/ML 2 ML VIAL ONE (09:05)
--- NOTE | 2022-06-23 09:06 | Nephrology Progress Note ---
Date of Service June 23, 2022 Assessment & Plan (1) TISHA (acute kidney injury): Plan: * TISHA likely ATN due to dehydration in the setting of SEAN inhibitor therapy * Hold Lisinopril and HCTZ * Patient denies use of Diclofenac or OTC NSAID since last Nephrology OV 08/10 * Resume Normosol at 80 cc/hr IV * Keep Davis catheter in place to monitor I&O's * Renal US was negative for obstruction, PSA < 4.0 * Monitor PRP (2) Chronic kidney disease (CKD): Plan: * CKD stage G3/A2 (moderate impairment). Baseline Cr 1.4 - 1.8 w/ EGFR 39 cc/min. Prior evaluation revealed acellular urine sediment. UPCR 0.8. 08/10 renal US - R 13 cm, L 11.3 cm, no hydronephrosis/mass/stone. Renal impairment was attributed to microvascular disease, hypertensive nephrosclerosis and chronic NSAID use (3) Vision loss of right eye: Plan: * 06/21/22 carotid doppler - negative for significant stenosis * 06/21/22 echocardiogram - negative for thrombus, normal LVEF * Temporal artery biopsy completed 06/23/22 - results pending (4) Abdominal bruit: Plan: * Unable to visualize aortic or renal arteries w/ US due to body habitus/bowel gas Admission and Anticipated Discharge Date Admission Date: June 21, 2022 Subjective Laboratory Tests 06/23/22 06/23/22 06:50 06:50 WBC 13.07 H Hgb 10.5 L Hct 31.8 L Plt Count 268 Sodium 142 Potassium 3.9 Chloride 110 H Carbon Dioxide 23 BUN 104 H Creatinine 6.02 H* D Est GFR (Non-Af Amer) 9.4 Glucose 156 H Calcium 7.7 L Review of Systems Constitutional: + weakness; no fever Eyes: + problem reported (loss of vision R eye) Ear, Nose, Mouth, Throat: no problem reported Respiratory: no cough and no dyspnea Cardiovascular: no chest pain Gastrointestinal: no abdominal pain Genitourinary: no decreased urination Physical Exam Constitutional: + overweight; not in distress Eyes: + dilated pupils (R) ENMT: external ear and nose normal, oropharynx normal Respiratory: normal respiratory effort, lungs clear to auscultation Cardiovascular: RRR, no murmur, no edema Gastrointestinal (Abdomen): normal bowel sounds, soft, nontender, no hepatosplenomegaly Skin: + turgor decreased Neurologic: awake; not confused Results & Data ([facility]) Vital Signs (Past 12 Hours) Vital Signs Temp Pulse Pulse Resp BP Pulse Ox O2 Del Method 06/23/22 07:47 36.8 C 77 18 110/63 94 Room Air 06/23/22 06:56 83 06/23/22 03:58 36.9 C 66 18 119/67 93 Room Air 06/22/22 22:57 36.8 C 67 20 114/66 93 Room Air 06/22/22 22:20 70 Laboratory Results Laboratory Tests 06/21/22 06/23/22 06/23/22 05:33 06:50 06:50 WBC 13.07 H Hgb 10.5 L Hct 31.8 L Plt Count 268 Sodium 142 Potassium 3.9 Chloride 110 H Carbon Dioxide 23 BUN 104 H Creatinine 6.02 H* D Glucose 156 H Calcium 7.7 L Albumin 3.9 PG Care Time/CCT Total # of Minutes Spent Total Time Spent with Patient: Total time spent is greater than 50% in coordination of care (as documented) at patient's floor/unit and/or counseling patient: Coding Level of Care Code 87375 Subseq Hosp Care Lvl 3 Diagnoses TISHA (acute kidney injury) N17.9 Chronic kidney disease (CKD) N18.9 Vision loss of right eye H54.61 Abdominal bruit R09.89
[2022-06-23] MEDS ORDERED: DEXAMETHASONE SOD INJ 4 MG/ML VIAL ONE (09:10)
[2022-06-23] MEDS ORDERED: ceFAZolin 2000MG 2,000 MG/15 ML SYR IV ONE (09:13)
--- NOTE | 2022-06-23 09:13 | Post Operative Brief Note ---
PG Immediate Post Op with CF Date of Surgery June 23, 2022 Pre & Post Diagnosis Operation Date: 06/23/22 08:15 Pre-Op Diagnosis: Vision loss of right eye Post-Op Diagnosis: Vision loss of right eye I identified the patient and participated in the time-out.: Yes Procedure Operation Date: 06/23/22 08:15 Actual Procedures p Right Temporal Artery Biopsy(Right) - Delonte Robertson MD, FACS Surgeon Delonte Robertson MD, FACS [employer] Operator Nurses Estimated Blood Loss 10 Findings Consistent with Post-Op Diagnosis Right temporal artery Specimens Specimen Description: A: Right Temporal Artery Biopsy Drains Davis Catheter
[2022-06-23] MEDS ORDERED: HYDROCODONE/ACETAMOPHEN 5/325MG TAB PO PRN (09:39)
--- NOTE | 2022-06-23 09:40 | Operative Report (OR) ---
DATE OF OPERATION: 06/23/2022. NAME OF OPERATION: Right temporal artery biopsy. PREOPERATIVE DIAGNOSIS: Right visual loss, right eye. POSTOPERATIVE DIAGNOSIS: Right visual loss, right eye. STAFF SURGEON: Delonte Robertson MD. FINANCE ANALYST: Nurses. ANESTHESIA: Local with sedation. DESCRIPTION OF PROCEDURE: The patient was brought in the operating room and placed on the operating table in supine position. His right temporal artery was prepped and draped in the usual fashion. 1% plain lidocaine was used to anesthetize skin and subcutaneous tissue. Incision made carrying dissec tion down deep through the fascia, identifying the right temporal artery. It was ligated on both end s using 5-0 Prolene suture as well as one major branch and then a segment excised. It was placed in and sent to routine pathology. The deep tissue was reapproximated using 4-0 chromic suture. Then, t he skin reapproximated using subcuticular 4-0 Monocryl with Dermabond. The patient was transferred t o recovery room in stable condition. Job ID: [id number]
--- NOTE | 2022-06-23 09:43 | Anesthesiology Progress Note ---
Date of Service June 23, 2022 Anesthesia Post Procedure Vital Signs Vital Signs: Temp Pulse Pulse Pulse Resp BP Pulse Ox 06/23/22 09:35 98.1 F 64 20 110/64 93 06/23/22 09:25 62 20 109/59 L 93 06/23/22 09:18 98.1 F 67 19 103/55 L 100 06/23/22 07:47 98.2 F 77 18 110/63 94 06/23/22 06:56 83 06/23/22 03:58 98.4 F 66 18 119/67 93 06/22/22 22:57 98.2 F 67 20 114/66 93 06/22/22 22:20 70 06/22/22 19:48 98.1 F 70 18 112/64 97 06/22/22 15:11 97.5 F L 70 20 112/66 94 06/22/22 11:18 97.9 F 79 20 100/58 L 97 O2 Del Method O2 Flow Rate 06/23/22 09:35 Room Air 06/23/22 09:25 Room Air 06/23/22 09:18 Oxymask 6 06/23/22 07:47 Room Air 06/23/22 06:56 06/23/22 03:58 Room Air 06/22/22 22:57 Room Air 06/22/22 22:20 06/22/22 19:48 Room Air 06/22/22 15:11 Room Air 06/22/22 11:18 Pain Intensity Right Eye: Pain Intensity: 3 Transfer of Care Handoff Completed per policy Notes Mental Status: alert / awake / arousable and participated in evaluation Patient Amnestic to Procedure: Yes Nausea / Vomiting: adequately controlled Pain: adequately controlled Airway Patency, RR, SpO2: stable & adequate BP & HR: stable & adequate Hydration State: stable & adequate Anesthetic Complications: no major complications apparent and Pt Satisfied with anesthetic care
[2022-06-23] MEDS: methylPREDNISolone 1,000 MG in DEXTROSE 5% 250 ML IV SCH (09:54)
[2022-06-23] MEDS: ROSUVASTATIN CALCIUM 20 MG TAB PO SCH (09:58)
[2022-06-23] MEDS: cilostazoL 100 MG TAB PO SCH ×2 (09:58→21:06)
[2022-06-23] MEDS: PANTOprazole 40 MG TAB PO SCH (09:58)
[2022-06-23] MEDS: ASPIRIN 81 MG ECTAB PO SCH (09:58)
--- NOTE | 2022-06-23 10:31 | Hospitalist Progress Note ---
Date of Service June 23, 2022 Assessment & Plan (1) Vision loss of right eye: Plan: 61yo male with a history of HTN, HLD, CAD s/p RCA stent (x2, done in 2013), CKD3 (baseline creatinine ~2.0) presents with a two-day history of right-sided vision loss and right eye pain in the setting of a two-week history of nausea, vomiting, diarrhea, and poor PO intake. Sudden-onset right-sided vision loss and eye pain MRI brain: no acute intracranial pathology, minimal nonspecific white matter changes, chronic ethmoid sinusitis Labs notable for ARF (see below) and elevated ESR/CRP; hsTroponin not elevated Differential includes temporal arteritis which is most likely, less suspicion for glaucoma or cardioembolic event Echocardiogram- EF 65-70%, no WMA, grade 1 diastolic dysfunction noted Carotid doppler without significant stenoses Neuro checks q4h Continue high dose IV methylprednisolone 1000 mg daily (day 3), switch to prednisone tomorrow- duration to be determined pending biopsy results ESR, CRP downtrending. Mild leukocytosis 6.7 to 12.4 likely due to steroids Discussed case with pt's taxicab coordinator 06/22 -Optic nerve findings typical of GCA not seen -Suspect potential ophthalmic artery occlusion- will continue secondary risk reduction- cilostazol, aspirin, high-intensity statin General surgery consulted- temporal artery biopsy performed 06/23, awaiting pathology results Acute renal failure, history of CKD3 Creatinine on admission 13.24 (baseline ~2.0) Etiology unclear at this time- may be due to fluid losses from recent possible GI illness in setting of CKD Renal ultrasound unremarkable for obstruction Holding lisinopril and HCTZ Davis catheter in place Nephrology consulted 06/21 and following -Suspect TISHA due to ATN 2/2 dehydration in setting of ACEI therapy -Continue aggressive fluid repletion- switched NSS to Normosol today Cr improving with IVF- 6 today Trend BMP Hypokalemia Mild hypokalemia 3.4 likely secondary to acute renal failure Continue KCl oral supplementation, improved to K 3.9 today Trend BMP Nausea, vomiting, diarrhea, poor PO intake Two week history of the above symptoms though with some improvement over past day- possible viral GI illness which precipitated ARF Improving PO tolerance, continue IVF + Zofran PRN Trend BMP Hypertension BP slightly soft on arrival, slightly hypertensive afterwards, BP then normalized Hold home regimen due to ARF Continue to monitor Hyperlipidemia Continue home rosuvastatin 40 mg Home ASA held Repeat lipid profile wnl Diabetes -HbA1c 7.0% -Appears to be new diagnosis though well-controlled at present, BSGs wnl -F/u with PCP for diabetic regimen if indicated FEN: Heart healthy diet, Normosol 80 ml/hr Code status: full code DVT ppx: Heparin SQ BID Consults: nephrology, general surgery Dispo: med/telemetry (2) Acute renal failure: (3) TISHA (acute kidney injury): (4) Chronic kidney disease (CKD): (5) Coronary artery disease: (6) Hyperlipidemia: (7) Hypertension: (8) Obesity: Admission and Anticipated Discharge Date Admission Date: June 21, 2022 Supervising Physician Co-Signing Physician Notes I personally examined the patient and verified all tang points of history and exam, discussed case, and agree with decision making with Dr Robles no significant pain post biopsy. No vision in right eye. Vitals noted, in general he is awake and alert pleasant no distress. HEENT normocephalic atraumatic mucous membranes moist. Breathing unlabored no accessory muscle use good effort. No other focal neuro deficits beyond right eye vision loss. No facial droop no arm weakness etc. Otherwise exam as above. Right eye blindnessgiven headache elevated sed rate paindifferentials definitely favor giant cell arteritis/temporal arteritis. Far less likely to be ischemic vascular diseasealthough until giant cell arteritis is proven, a small arterial atherosclerotic occlusion cannot be definitively ruled out. No carotid embolic or cardioembolic source appears likelyhe does have vascular risks, but they seem to be overall well managed with his home regimen. No postbiopsyawaiting results. Continue steroidsswitching from 1 g IV Solu- Medrol to p.o. prednisone. Acute renal failurenot obstructive based on renal ultrasound. To that end, probably dehydration and diarrhea compounding dehydration causing a fairly severe ATN type picture. Showing nice day today improvement Type 2 diabeteslikely will be manageable with lifestyle change given that his A1c is only 7.0. DVT prophylaxisHeparin subcu Otherwise as above Subjective No acute events overnight. Pt reports he still cannot see at all from R eye. Denies any pain or acute complaints, tolerated biopsy well. Review of Systems Review of Systems: Per subjective Physical Exam Physical Exam: Constitutional: well-appearing, no acute distress, obese HEENT: anicteric sclerae, no conjunctival injection, moist mucous membranes Resp: no respiratory distress, no increased work of breathing Skin: no visible rashes Neuro: grossly alert and oriented Results & Data Results & Data ([facility]) Vital Signs (Past 12 Hours) Vital Signs Temp Pulse Pulse Pulse Resp BP Pulse Ox 06/23/22 09:45 36.7 C 57 L 18 116/65 95 06/23/22 09:35 36.7 C 64 20 110/64 93 06/23/22 09:25 62 20 109/59 L 93 06/23/22 09:18 36.7 C 67 19 103/55 L 100 06/23/22 07:47 36.8 C 77 18 110/63 94 06/23/22 06:56 83 06/23/22 03:58 36.9 C 66 18 119/67 93 06/22/22 22:57 36.8 C 67 20 114/66 93 O2 Del Method O2 Flow Rate 06/23/22 09:45 Room Air 06/23/22 09:35 Room Air 06/23/22 09:25 Room Air 06/23/22 09:18 Oxymask 6 06/23/22 07:47 Room Air 06/23/22 06:56 06/23/22 03:58 Room Air 06/22/22 22:57 Room Air Resident Activity Tracking Resident Involvement: Resident Care Provided Care Provided: Adult Hospital Medicine
[2022-06-23] MEDS: NORMOSOL-R 1,000 ML IV SCH ×2 (11:11→23:09)
--- NOTE | 2022-06-23 18:49 | Billing Data ---
Date of Service June 23, 2022 Coding Level of Care Code 03463 Subseq Hosp Care Lvl 3
--- NOTE | 2022-06-24 06:46 | Surgery Progress Note ---
Date of Service June 24, 2022 Assessment & Plan (1) History of temporal artery biopsy: Plan: Patient doing very well status post right temporal artery biopsy Right temporal biopsy site stable with Dermabond in place Information in EMR to call office for checkup in 2 to 3 weeks Pathology pending Admission and Anticipated Discharge Date Admission Date: June 21, 2022 Results & Data ([facility]) Vital Signs (Past 12 Hours) Vital Signs Temp Pulse Pulse Resp BP Pulse Ox O2 Del Method 06/24/22 03:08 36.7 C 79 18 125/78 94 Room Air 06/23/22 22:15 69 06/23/22 23:07 36.6 C 70 18 144/65 H 95 Room Air 06/23/22 19:46 36.7 C 70 16 145/71 H 94 Room Air PG Care Time/CCT Total # of Minutes Spent Total Time Spent with Patient: Total time spent is greater than 50% in coordination of care (as documented) at patient's floor/unit and/or counseling patient: Coding Level of Care Code None Diagnoses History of temporal artery biopsy Z98.890
[2022-06-24 07:47] LABS: Hematocrit (blood only) 32.8 % (40.1-51.0); Hemoglobin 10.8 g/dl (14.0-18.0); Mean Corpuscular Hgb Conc 32.9 g/dL (32.0-36.0); Mean Corpuscular Volume 87.9 fL (80.0-100.0); Mean Platelet Volume 9.8 fL (9.4-12.4); Platelet Count 260 K/uL (130-400); RDW Coefficient of Variation 16.1 % (11.5-14.5); RDW Standard Deviation 51.9 fL (36.4-46.3); Red Blood Count 3.73 M/uL (4.63-6.08); White Blood Count 10.09 K/ul (4.8-10.8)
[2022-06-24] MEDS: cilostazoL 100 MG TAB PO SCH ×2 (08:26→21:06)
[2022-06-24] MEDS: predniSONE 20 MG TAB PO SCH (08:26)
[2022-06-24] MEDS: PANTOprazole 40 MG TAB PO SCH (08:26)
[2022-06-24] MEDS: HEPARIN SOD 5,000 UNIT/0.5 ML VIAL SQ SCH ×2 (08:27→21:09)
[2022-06-24] MEDS: ROSUVASTATIN CALCIUM 20 MG TAB PO SCH (08:27)
[2022-06-24] MEDS: ASPIRIN 81 MG ECTAB PO SCH (08:27)
[2022-06-24 08:33] LABS: BUN Creatinine Ratio 19.6 (10-20); Calcium 7.5 mg/dl (8.5-10.1); Creatinine Clr Calc Pharmacy 19.7 ml/min; Est GFR (African American) 14.4 ml/min; Est GFR (Non-African American) 12.5 ml/min; Potassium 3.5 mmol/L (3.5-5.1)
--- NOTE | 2022-06-24 08:42 | Nephrology Progress Note ---
Date of Service June 24, 2022 Assessment & Plan (1) Heat stroke: Plan: * Visual loss R eye, TISHA/CKD - recovering (2) TISHA (acute kidney injury): Plan: * TISHA likely ATN due to dehydration (acute heat injury) in the setting of SEAN inhibitor therapy * Hold Lisinopril and HCTZ * Patient denies use of Diclofenac or OTC NSAID since last Nephrology OV 08/10 * Continue Normosol at 80 cc/hr IV. Heplock after 2000 cc infused * Keep Davis catheter in place to monitor I&O's * Renal US was negative for obstruction, PSA < 4.0 * Cr has improved from 13.2 to 4.75 * Monitor PRP (3) Chronic kidney disease (CKD): Plan: * CKD stage G3/A2 (moderate impairment). Baseline Cr 1.4 - 1.8 w/ EGFR 39 cc/min. Prior evaluation revealed acellular urine sediment. UPCR 0.8. 08/10 renal US - R 13 cm, L 11.3 cm, no hydronephrosis/mass/stone. Renal impairment was attributed to microvascular disease, hypertensive nephrosclerosis and chronic NSAID use (4) Vision loss of right eye: Plan: * 06/21/22 carotid doppler - negative for significant stenosis * 06/21/22 echocardiogram - negative for thrombus, normal LVEF * Temporal artery biopsy completed 06/23/22 - negative for inflammation (5) Abdominal bruit: Plan: * Unable to visualize aortic or renal arteries w/ US due to body habitus/bowel gas * Consider abdominal CT when clinically stable and TISHA resolved Admission and Anticipated Discharge Date Admission Date: June 21, 2022 Subjective Mr. Meyer was evaluated in his hospital room this morning. He is tolerating IV hydration without dyspnea or angina. He reports complete loss of vision in R eye Review of Systems Constitutional: + weakness; no fever Eyes: + problem reported (loss of vision R eye) Ear, Nose, Mouth, Throat: no problem reported Respiratory: no cough and no dyspnea Cardiovascular: no chest pain Gastrointestinal: no abdominal pain Genitourinary: no decreased urination Physical Exam Constitutional: + overweight; not in distress Eyes: + dilated pupils (R) ENMT: external ear and nose normal, oropharynx normal Mouth: + dry oral mucous membranes Respiratory: normal respiratory effort, lungs clear to auscultation Cardiovascular: RRR, no murmur, no edema Gastrointestinal (Abdomen): normal bowel sounds, soft, nontender, no hepatosplenomegaly Skin: + turgor decreased Neurologic: awake; not confused Results & Data ([facility]) Vital Signs (Past 12 Hours) Vital Signs Temp Pulse Pulse Resp BP Pulse Ox O2 Del Method 06/24/22 08:19 36.7 C 73 19 139/75 93 Room Air 06/24/22 07:00 71 06/24/22 03:08 36.7 C 79 18 125/78 94 Room Air 06/23/22 22:15 69 06/23/22 23:07 36.6 C 70 18 144/65 H 95 Room Air Laboratory Results Laboratory Tests 06/24/22 06/24/22 07:01 07:01 WBC 10.09 Hgb 10.8 L Hct 32.8 L Plt Count 260 Sodium 141 Potassium 3.5 Chloride 106 Carbon Dioxide 24 BUN 93 H Creatinine 4.75 H* D Glucose 151 H Calcium 7.5 L Diagnostic Findings 06/23/22 R temporal artery biopsy: FINAL DIAGNOSIS Artery, right temporal, biopsy: - Medium-sized muscular artery without histopathologic abnormalities - Negative for neutrophilic, lymphocytic or granulomatous inflammation PG Care Time/CCT Total # of Minutes Spent Total Time Spent with Patient: Total time spent is greater than 50% in coordination of care (as documented) at patient's floor/unit and/or counseling patient: Coding Level of Care Code 33734 Subseq Hosp Care Lvl 3 Diagnoses Heat stroke T67.01XA TISHA (acute kidney injury) N17.9 Chronic kidney disease (CKD) N18.9 Vision loss of right eye H54.61 Abdominal bruit R09.89
--- NOTE | 2022-06-24 10:09 | Hospitalist Progress Note ---
Date of Service June 24, 2022 Assessment & Plan (1) Vision loss of right eye: Plan: 61yo male with a history of HTN, HLD, CAD s/p RCA stent (x2, done in 2013), CKD3 (baseline creatinine ~2.0) presents with a two-day history of right-sided vision loss and right eye pain in the setting of a two-week history of nausea, vomiting, diarrhea, and poor PO intake. Sudden-onset right-sided vision loss and eye pain MRI brain: no acute intracranial pathology, minimal nonspecific white matter changes, chronic ethmoid sinusitis Labs notable for ARF (see below) and elevated ESR/CRP; hsTroponin not elevated Differential includes temporal arteritis which is most likely, less suspicion for glaucoma or cardioembolic event Echocardiogram- EF 65-70%, no WMA, grade 1 diastolic dysfunction noted Carotid doppler without significant stenoses Neuro checks q4h ESR, CRP downtrending. Mild leukocytosis to 12.4 resolved to 10, likely due to steroids Discussed case with pt's brand advocate 06/22 -Optic nerve findings typical of GCA not seen -Suspect potential ophthalmic artery occlusion- will continue secondary risk reduction- cilostazol, aspirin, high-intensity statin General surgery consulted- temporal artery biopsy performed 06/23, awaiting pathology results Received IV solumedrol 06/21-06/23, switched to prednisone 60 mg today- duration to be determined pending biopsy results Acute renal failure, history of CKD3 Creatinine on admission 13.24 (baseline ~2.0) Etiology unclear at this time- most likely due due to fluid losses from recent possible GI illness in setting of CKD Renal ultrasound unremarkable for obstruction Holding lisinopril and HCTZ Daivs catheter in place Nephrology consulted 06/21 and following -Suspect TISHA due to ATN 2/2 dehydration in setting of ACEI therapy -Continue aggressive fluid repletion- Normosol 80 cc/hr Cr improving with IVF- 4.75 today Trend BMP Nausea, vomiting, diarrhea, poor PO intake Two week history of the above symptoms though with some improvement over past day- possible viral GI illness which precipitated ARF Improving PO tolerance, continue IVF + Zofran PRN Trend BMP Hypertension BP slightly soft on arrival, slightly hypertensive afterwards, BP then normalized Hold home regimen due to ARF Continue to monitor Hyperlipidemia Continue home rosuvastatin 40 mg Home ASA held Repeat lipid profile wnl Diabetes -HbA1c 7.0% -Appears to be new diagnosis though well-controlled at present, BSGs wnl -F/u with PCP for diabetic regimen if indicated FEN: Heart healthy diet, Normosol 80 ml/hr Code status: full code DVT ppx: Heparin SQ BID Consults: nephrology, general surgery Dispo: med/telemetry (2) Acute renal failure: (3) TISHA (acute kidney injury): (4) Chronic kidney disease (CKD): (5) Coronary artery disease: (6) Hyperlipidemia: (7) Hypertension: (8) Obesity: Admission and Anticipated Discharge Date Admission Date: June 21, 2022 Supervising Physician Co-Signing Physician Notes I personally examined the patient and verified all tang points of history and exam, discussed case, and agree with decision making with Dr Robles Doing okay except for no vision in right eye. Discussed the unfortunate likelihood he will not regain vision. Separately, discussed new onset type 2 diabetes and the critical role of lifestyle changehe expressed good understanding. Vitals noted, in general he is awake and alert pleasant no distress. HEENT normocephalic atraumatic mucous membranes moist. Breathing unlabored no accessory muscle use good effort. No other focal neuro deficits beyond right eye vision loss. No facial droop no arm weakness etc. Otherwise exam as above. Right eye blindnessgiven headache elevated sed rate paindifferentials definitely favor giant cell arteritis/temporal arteritis. Far less likely to be ischemic vascular diseasealthough until giant cell arteritis is proven, a small arterial atherosclerotic occlusion cannot be definitively ruled out. No carotid embolic or cardioembolic source appears likelyhe does have vascular risks, but they seem to be overall well managed with his home regimen. No postbiopsynegative for changes in the biopsied segmentwe will likely need to ask rheumatology for assistance given his overall initial presentation.. Continue steroids for nowp.o. prednisone. Acute renal failurenot obstructive based on renal ultrasound. To that end, probably dehydration and diarrhea compounding dehydration causing a fairly severe ATN type picture. Ongoing Type 2 diabeteslikely will be manageable with lifestyle change given that his A1c is only 7.0. Extensive discussion today DVT prophylaxisHeparin subcu Otherwise as above Subjective No acute events overnight. Pt reports feeling well, denies any acute complaints. States his R roman catholic is less tender than before. Review of Systems Review of Systems: Per subjective Physical Exam Physical Exam: Constitutional: well-appearing, no acute distress, obese HEENT: NCAT, EOMI, anicteric sclerae, no conjunctival injection, right roman catholic less tender to palpation, no jaw tenderness CV: RRR, normal S1/S2, no murmur appreciated, extremities well-perfused, no LE edema Resp: CTAB, no wheezes/rales/rhonchi appreciated, no increased work of breathing GI: soft, nondistended, nontender MSK: no gross deformities appreciated Skin: warm, dry, no rash appreciated Neuro: alert, oriented, pupils constrict to light though R afferent pupillary defect, total loss of R vision with complete R visual field deficits, 5/5 strength of b/l LE and UE, no sensory deficits Results & Data Results & Data ([facility]) Vital Signs (Past 12 Hours) Vital Signs Temp Pulse Pulse Resp BP Pulse Ox O2 Del Method 06/24/22 08:19 36.7 C 73 19 139/75 93 Room Air 06/24/22 07:00 71 06/24/22 03:08 36.7 C 79 18 125/78 94 Room Air 06/23/22 22:15 69 06/23/22 23:07 36.6 C 70 18 144/65 H 95 Room Air Resident Activity Tracking Resident Involvement: Resident Care Provided Care Provided: Adult Hospital Medicine
[2022-06-24] MEDS: NORMOSOL-R 1,000 ML IV SCH (13:15)
--- NOTE | 2022-06-24 18:52 | Billing Data ---
Date of Service June 24, 2022 Coding Level of Care Code 19980 Subseq Hosp Care Lvl 3
[2022-06-25] MEDS: NORMOSOL-R 1,000 ML IV SCH (02:09)
[2022-06-25 07:30] LABS: BUN Creatinine Ratio 22.7 (10-20); Creatinine Clr Calc Pharmacy 26.6 ml/min; Est GFR (African American) 20.7 ml/min; Est GFR (Non-African American) 17.9 ml/min; Potassium 3.3 mmol/L (3.5-5.1)
[2022-06-25] MEDS ORDERED: POTASSIUM CHLORIDE CRTAB 20 MEQ TABCR PO STA (08:50)
[2022-06-25] MEDS: cilostazoL 100 MG TAB PO SCH ×2 (09:01→19:54)
[2022-06-25] MEDS: ROSUVASTATIN CALCIUM 20 MG TAB PO SCH (09:01)
[2022-06-25] MEDS: predniSONE 20 MG TAB PO SCH (09:02)
[2022-06-25] MEDS: HEPARIN SOD 5,000 UNIT/0.5 ML VIAL SQ SCH ×2 (09:02→20:01)
[2022-06-25] MEDS: PANTOprazole 40 MG TAB PO SCH (09:02)
[2022-06-25] MEDS: ASPIRIN 81 MG ECTAB PO SCH (09:02)
--- NOTE | 2022-06-25 09:10 | Hospitalist Progress Note ---
Date of Service June 25, 2022 Assessment & Plan (1) Vision loss of right eye: Plan: 61yo male with a history of HTN, HLD, CAD s/p RCA stent (x2, done in 2013), CKD3 (baseline creatinine ~2.0) presents with a two-day history of right-sided vision loss and right eye pain in the setting of a two-week history of nausea, vomiting, diarrhea, and poor PO intake. Sudden-onset right-sided vision loss and eye pain MRI brain: no acute intracranial pathology, minimal nonspecific white matter changes, chronic ethmoid sinusitis Labs notable for ARF (see below) and elevated ESR/CRP; hsTroponin not elevated Echocardiogram- EF 65-70%, no WMA, grade 1 diastolic dysfunction noted Carotid doppler without significant stenoses ESR, CRP downtrending. Mild leukocytosis to 12.4 resolved to 10, likely due to steroids Discussed case with pt's banking officer 06/22 -Optic nerve findings typical of GCA not seen -Suspect potential ophthalmic artery occlusion- will continue secondary risk reduction- cilostazol, aspirin, high-intensity statin General surgery consulted- temporal artery biopsy performed 06/23, biopsy negative for temporal arteritis Received IV solumedrol 06/21-06/23, switched to prednisone 60 mg on 06/24 Biopsy negative though clinical picture consistent with temporal arteritis -Will discuss with rheumatology for further guidance Acute renal failure, history of CKD3 Creatinine on admission 13.24 (baseline ~2.0) Etiology unclear at this time- most likely due due to fluid losses from recent possible GI illness in setting of CKD Renal ultrasound unremarkable for obstruction Holding lisinopril and HCTZ Davis catheter in place Nephrology consulted 06/21 and following -Suspect TISHA due to ATN 2/2 dehydration in setting of ACEI therapy -Continue aggressive fluid repletion- Normosol 80 cc/hr Cr improving with IVF- 3.53 today Trend BMP Nausea, vomiting, diarrhea, poor PO intake Two week history of the above symptoms though with some improvement over past day- possible viral GI illness which precipitated ARF Improving PO tolerance, continue IVF + Zofran PRN Trend BMP Hypertension BP slightly soft on admission, slightly hypertensive afterwards, BP then normalized Hold home regimen due to ARF Continue to monitor, resume home medication as TISHA resolves Hyperlipidemia Continue home rosuvastatin 40 mg Home ASA held Repeat lipid profile wnl Diabetes -HbA1c 7.0% -Appears to be new diagnosis though well-controlled at present, BSGs wnl -F/u with PCP for diabetic regimen if indicated, though diet/exercise should be sufficient for management at this point FEN: Heart healthy diet, Normosol 80 ml/hr Code status: full code DVT ppx: Heparin SQ BID Consults: nephrology, general surgery Dispo: downgrade to medical/surgical from telemetry (2) Acute renal failure: (3) TISHA (acute kidney injury): (4) Chronic kidney disease (CKD): (5) Coronary artery disease: (6) Hyperlipidemia: (7) Hypertension: (8) Obesity: Admission and Anticipated Discharge Date Admission Date: June 21, 2022 Supervising Physician Co-Signing Physician Notes I personally examined the patient and verified all tang points of history and exam, discussed case, and agree with decision making with Dr Robles No new complaints. Resident physician discussed with rheumatologycontinue current care and rheumatology will follow closely after discharge Vitals noted, in general he is awake and alert pleasant no distress. HEENT normocephalic atraumatic mucous membranes moist. Breathing unlabored no accessory muscle use good effort. No other focal neuro deficits beyond right eye vision loss. No facial droop no arm weakness etc. Otherwise exam as above. Right eye blindnessgiven headache elevated sed rate paindifferentials definitely favor giant cell arteritis/temporal arteritis.Now postbiopsynegati ve for changes in the biopsied segmentw but given high probability will have rheumatology follow, continue current treatment for now. Is possible this was a small vessel atherosclerotic eventto which and he is on appropriate secondary risk reduction. Acute renal failurenot obstructive based on renal ultrasound. To that end, probably dehydration and diarrhea compounding dehydration causing a fairly severe ATN type picture. Ongoing improvementpossibly home as soon as tomorrow Type 2 diabeteslikely will be manageable with lifestyle change given that his A1c is only 7.0. Extensive discussion 06/25 DVT prophylaxisHeparin subcu Otherwise as above Subjective No acute events overnight. Pt reports feeling well, denies any acute complaints. States his R taoism is less tender but unfortunately unchanged complete vision loss of R eye. Review of Systems Review of Systems: Per subjective Physical Exam Physical Exam: Constitutional: well-appearing, no acute distress, obese HEENT: NCAT, EOMI, anicteric sclerae, no conjunctival injection, right taoism less tender to palpation, no jaw tenderness CV: RRR, normal S1/S2, no murmur appreciated, extremities well-perfused, no LE edema Resp: CTAB, no wheezes/rales/rhonchi appreciated, no increased work of breathing GI: soft, nondistended, nontender MSK: no gross deformities appreciated Skin: warm, dry, no rash appreciated Neuro: alert, oriented, pupils constrict to light though R afferent pupillary defect, total loss of R vision with complete R visual field deficits, 5/5 strength of b/l LE and UE, no sensory deficits Results & Data Results & Data ([facility]) Vital Signs (Past 12 Hours) Vital Signs Temp Pulse Pulse Resp BP Pulse Ox O2 Del Method 06/25/22 07:44 36.4 C L 78 19 175/73 H 96 Room Air 06/25/22 04:06 36.7 C 62 18 147/80 H 92 Room Air 06/24/22 22:21 68 06/25/22 00:12 36.7 C 74 20 151/76 H 94 Room Air Resident Activity Tracking Resident Involvement: Resident Care Provided Care Provided: Adult Hospital Medicine
--- NOTE | 2022-06-25 12:18 | Nephrology Progress Note ---
Date of Service June 25, 2022 Assessment & Plan (1) TISHA (acute kidney injury): (2) Hypertension: (3) Heat stroke: Plan 61-year-old gentlemen with history of stage III CKD, baseline creatinine 1.8, admitted to the hospital with TISHA with creatinine 13 in the setting of heat stroke, volume depletion. Renal function rapidly improved with IV hydration, creatinine down to 3.5 this morning. Overall otherwise feeling well except some fatigue. -- recommend discontinuing IV fluid and Davis catheter as blood pressure has been stable and renal function rapidly improving. Expect renal function to continue to improve. Okay to be discharged from Nephrology standpoint with close outpatient lab monitoring 2 to 3 days after discharge and outpatient follow-up with Dr. Ortez at CKD clinic. -- Continue to monitor renal function daily while in hospital. Will follow Admission and Anticipated Discharge Date Admission Date: June 21, 2022 Maira Valdivia was seen and evaluated this morning. Overall feel he feels well except feeling tired and having difficulty sleeping at night due to noises. has been having decent urine output and net negative. Renal function continues to improve, creatinine down to 3.5, electrolyte acceptable. Review of Systems Review of Systems: detailed review of system was otherwise unremarkable except mentioned above. Physical Exam Constitutional: WD/WN, vitals as above no acute distress Eyes: + anicteric sclerae ENMT: Ears: no hearing impairment Neck: normal visual inspection Respiratory: normal respiratory effort; no respiratory distress Auscultation: lungs clear to auscultation bilaterally Cardiovascular: Rate/Rhythm: regular rate and regular rhythm Heart Sounds: normal S1 and normal S2 Extremities: no edema Skin: no rashes Sunburn lesion. Neurologic: no focal motor deficits and not confused Psychiatric: Orientation: alert and oriented x 3 Results & Data ([facility]) Vital Signs (Past 12 Hours) Vital Signs Temp Pulse Pulse Resp BP Pulse Ox O2 Del Method 06/25/22 11:28 36.5 C 100 H 20 147/76 H 93 Room Air 06/25/22 08:00 62 06/25/22 07:44 36.4 C L 78 19 175/73 H 96 Room Air 06/25/22 04:06 36.7 C 62 18 147/80 H 92 Room Air PG Care Time/CCT Total # of Minutes Spent Total Time Spent with Patient: Total time spent is greater than 50% in coordination of care (as documented) at patient's floor/unit and/or counseling patient: Coding Level of Care Code 12435 Subseq Hosp Care Lvl 3 Diagnoses TISHA (acute kidney injury) N17.9 Hypertension I10 Heat stroke T67.01XA
--- NOTE | 2022-06-25 18:38 | Billing Data ---
Date of Service June 25, 2022 Coding Level of Care Code 19012 Subseq Hosp Care Lvl 3
[2022-06-26] MEDS: cilostazoL 100 MG TAB PO SCH (08:27)
[2022-06-26] MEDS: HEPARIN SOD 5,000 UNIT/0.5 ML VIAL SQ SCH (08:27)
[2022-06-26] MEDS: PANTOprazole 40 MG TAB PO SCH (08:28)
[2022-06-26] MEDS: ASPIRIN 81 MG ECTAB PO SCH (08:28)
[2022-06-26] MEDS: predniSONE 20 MG TAB PO SCH (08:28)
[2022-06-26] MEDS: ROSUVASTATIN CALCIUM 20 MG TAB PO SCH (08:28)
--- NOTE | 2022-06-26 09:52 | Discharge Summary ---
Date of Service June 26, 2022 Admission HPI Per Admitting Provider 61yo male with a history of HTN, HLD, CAD s/p RCA stent (x2, done in 2013), CKD3 (baseline creatinine ~2.0), and hypertensive nephrosclerosis (as per 08/09 nephrology note) presents with a two-day history of right-sided vision loss and right eye pain in the setting of a two-week history of nausea, vomiting, diarrhea, and poor PO intake. Patient went to sleep Monday with only mild symptoms as noted, but when he woke up Monday (two days ago) he could not see out of his right eye at all, and had a sharp pain behind his right eye. Patient does have a history of CVA "many years ago" with the only persistent symptom being mild intermittent vertigo, which has not bothered patient recently. Patient went to an core carrier on 06/20 in the afternoon - the core carrier's exam was reportedly without acute findings, and so patient was referred to the ED for workup for CVA. Denies fever, chills, CP, SOB, abdominal pain, lightheadedness, dizziness, or other symptoms. No recent travel, no recent illnesses preceding the last two weeks. No recent falls or trauma. Patient does note he didn't urinate for two days last week though this has improved. Patient has been drinking three to four 16oz bottles of water and one to two 12oz bottles of gatorade each day. [place], but denies any recent known tick bites. Patient does note he got a sunburn on his nose recently which has scabbed over. Upon arrival to [facility], vitals were noted for low-end blood pressure, and were otherwise stable. Patient afebrile, spO2 adequate on room air. Labs on admission were primarily notable for a creatinine of 13.2 and BUN of 129 in addition to mild anemia (12.1), elevated ESR (77), and elevated CRP (1.15). No leukocytosis, platelets wnl, INR 1.0, LFTs wnl. Covid negative. UA was notable for granular casts (1-5), 1+ protein, and trace blood; UA was otherwise unremarkable. In the ED, patient was given NSS 500mL bolus (x1), started on NSS @ 125mL/hr, and was given methylprednisolone IV 500mg (x1), metoclopramide IV 5mg (x1), and diphenhydramine IV 25mg (x1). Patient's headache resolved while in the ED. Surrogate decision-maker in case of an emergency: Dixie Meyer (cell: [phone]) Admission Exam Per Admitting Provider Constitutional: well-appearing, no acute distress HEENT: NCAT, no conjunctival injection, right christian tender to palpation CV: regular rhythm, no murmur appreciated, extremities well-perfused, no LE edema Resp: CTABL, no wheezes/rales/rhonchi appreciated, no increased work of breathing GI: soft, nondistended, nontender, BS normoactive MSK: no gross deformities appreciated Skin: warm, dry, no rash appreciated Neuro: alert, oriented, no focal neurologic deficit appreciated Principal Diagnosis Likely temporal arteritis Discharge Exam Constitutional: well-appearing, no acute distress, obese HEENT: NCAT, EOMI, anicteric sclerae, no conjunctival injection, right christian less tender to palpation, no jaw tenderness CV: RRR, normal S1/S2, no murmur appreciated, extremities well-perfused, no LE edema Resp: CTAB, no wheezes/rales/rhonchi appreciated, no increased work of breathing GI: soft, nondistended, nontender MSK: no gross deformities appreciated Skin: warm, dry, no rash appreciated Neuro: alert, oriented, pupils constrict to light though R afferent pupillary defect, total loss of R vision with complete R visual field deficits, 5/5 strength of b/l LE and UE, no sensory deficits Discharge Data Allergies Allergy/AdvReac Type Severity Reaction Status Date / Time Penicillins Allergy Unknown CAN'T Verified 06/20/22 20:31 REMEMBER diclofenac AdvReac Intermediate Vomiting Verified 06/20/22 20:31 Consultations 06/20/22 22:24 ED Decision to Admit Stat 06/21/22 00:21 Consult Nephrology Routine 06/21/22 10:52 Consult General Surgery Routine 06/21/22 18:33 Consult Ophthalmology Routine Procedures Performed Operation Date: 06/23/22 08:15 Actual Procedures p Right Temporal Artery Biopsy(Right) - Delonte Robertson MD, FACS Ordered Studies 06/20/22 19:58 MRI Brain [MR brain wo con] Stat 06/20/22 20:08 US renal/blad retro comp Stat 06/21/22 14:07 Carotid duplex [US carotid doppler BI] Routine 06/22/22 10:43 US aorta duplex Routine 06/22/22 11:44 US duplex renal artery Routine Diabetes Follow up Diabetes Follow-up Needed for Newly Diagnosed Diabetes Hospital Course (1) Vision loss of right eye: 61yo male with a history of HTN, HLD, CAD s/p RCA stent (x2, done in 2013), CKD3 (baseline creatinine ~2.0) presents with a two-day history of right-sided vision loss and right eye pain in the setting of a two-week history of nausea, vomiting, diarrhea, and poor PO intake. Sudden-onset right-sided vision loss and eye pain MRI brain: no acute intracranial pathology, minimal nonspecific white matter changes, chronic ethmoid sinusitis Labs notable for ARF (see below) and elevated ESR/CRP; hsTroponin not elevated Echocardiogram- EF 65-70%, no WMA, grade 1 diastolic dysfunction noted Carotid doppler without significant stenoses ESR, CRP downtrending. Mild leukocytosis to 12.4 resolved to 10, likely due to steroids Discussed case with pt's core carrier 06/22 -Optic nerve findings typical of GCA not seen -Suspect potential ophthalmic artery occlusion- will continue secondary risk reduction- cilostazol, aspirin, high-intensity statin General surgery consulted- temporal artery biopsy performed 06/23, biopsy negative for temporal arteritis Received IV solumedrol 06/21-06/23, switched to prednisone 60 mg on 06/24, discharged on prednisone 60 mg Biopsy negative though clinical picture consistent with temporal arteritis - Pt to f/u with rheumatology as outpatient, hepatitis B/quantiferon gold labs pending at time of discharge Acute renal failure, history of CKD3 Creatinine on admission 13.24 (baseline ~2.0) Etiology unclear at this time- most likely due due to fluid losses from recent possible GI illness in setting of CKD Renal ultrasound unremarkable for obstruction Holding lisinopril and HCTZ Davis catheter in place Nephrology consulted 06/21 and following -Suspect TISHA due to ATN 2/2 dehydration in setting of ACEI therapy -Continue aggressive fluid repletion- Normosol 80 cc/hr Cr improving with IVF- 2.54 on day of discharge- recommend repeat BMP at PCP f/u F/u with nephrology as outpatient Hypertension BP slightly soft on admission, slightly hypertensive afterwards, BP then normalized Hold home regimen due to ARF Instructed to hold lisinopril and HCTZ on discharge, resume if appropriate at PCP f/u Hyperlipidemia Continue home rosuvastatin 40 mg Repeat lipid profile wnl Diabetes -HbA1c 7.0% -Appears to be new diagnosis though well-controlled at present, BSGs wnl -F/u with PCP for diabetic regimen if indicated, though diet/exercise should be sufficient for management at this point (2) Acute renal failure: (3) TISHA (acute kidney injury): (4) Chronic kidney disease (CKD): (5) Coronary artery disease: (6) Hyperlipidemia: (7) Hypertension: (8) Obesity: Total Time Total Time Spent Total Time Spent (In Minutes): <30 Discharge Plan Discharge Items Patient Disposition: Home - Self-Care Reason For Visit: ARF, RIGHT-SIDED VISION LOSS Discharge Diagnosis: Suspected temporal arteritis Activity: Resume your previous activity Activity Comment: Light activity for 2 weeks, avoid driving Non-emergency contact: Primary Care Provider Call non-emergency contact if: you have any medication questions and your symptoms worsen Follow-up/Referrals: Ketlon Ortez MD [Physician] - Delonte Robertson MD, FACS [Physician] - Endy Garner MD [Primary Care Provider] - Poli Lopez MD [Physician] - Diet: Carb Consistent or DM2 Addtl Attending Provider Instructions: You were admitted to the hospital for eye pain, headache and vision loss. This was suspected to be due to temporal arteritis and you were treated with steroids. A discharge summary will be sent to your primary care physician to ensure continuity of care. Please bring this discharge summary with you to your next office appointment so that your provider can review it at that time. Follow-up appointments: We have requested follow up appointments with nephrology, general surgery, rheumatology and your PCP Dr. Garner. Please call Dr. Garner's office to try and schedule an appointment as soon as possible to follow up from your hospital discharge. Medications: Your medication list has been reviewed and reconciled upon discharge to ensure accuracy and continuity of care. An updated list of all your medications is included with your hospital discharge paperwork. Please review this list closely, and make note of any c hanges. Your kidney function was decreased as a result of dehydration. Until your follow-up appointment with Dr. Garner, do not resume taking your lisinopril or hydrochlorothiazide because these may worsen kidney function. Please drink plenty of water as well. We also sent a medication called prednisone to the pharmacy. This is an oral steroid used to treat temporal arteritis. Please take prednisone 60 mg (three 20 mg tablets) daily until your follow up appointment with Dr. Barr at the rheumatology clinic. Take your medications as instructed; do not skip a dose of your medicines. Make sure all of your doctors know every medicine you are taking (including [id number] medicines, vitamins, and supplements). Call your primary care provider before taking any new medicines (including [id number] medicines, vitamins, and supplements), because some of these may interact with your current medications, or may make your symptoms worse. Tell your primary care provider if you cannot afford your medications. CONTACT YOUR PRIMARY CARE PROVIDER if you experience any of the following: Headache Vision changes Weakness Numbness Jaw pain Difficulty following your treatment plan, or difficulty taking medications CALL 911 OR GO TO THE EMERGENCY DEPARTMENT if you experience any of the following: Sudden, severe abdominal pain or nausea/vomiting Severe chest pain, or chest pain that radiates (moves) to your jaw or arm Sudden, severe shortness of breath or difficulty breathing Thank you for allowing us to participate in your care. Addtl Ui Software Engineer Provider Instructions: Light activity for 2 weeks May shower over incision Call office and come to see Dr. Robertson in 2 to 3 weeks [phone] Pending Studies at Discharge: Yes Studies:: Hepatitis B panel, TB quantiferon gold Stand-Alone Forms: My [facility] Medications and DC Order Prescriptions: New prednisone 20 mg Tablet 60 mg PO DAILY Qty: 30 0RF Continued hydrochlorothiazide 25 mg tablet 25 mg PO DAILY lisinopril 40 mg tablet 40 mg PO DAILY nitroglycerin [Nitrostat] 0.4 mg tablet, sublingual 0.4 mg sublingual Q5M PRN (Reason: Chest Pain) Rx Instructions: do not exceed 3 doses per episode amlodipine [Norvasc] 10 mg tablet 10 mg PO DAILY rosuvastatin 40 mg tablet 40 mg PO DAILY cilostazol 50 mg tablet 50 mg PO BID metoprolol tartrate 25 mg tablet 25 mg PO BID omega-3 fatty acids 1,000 mg Capsule 1,000 mg PO DAILY aspirin 81 mg Tablet,Delayed Release (Dr/Ec) 81 mg PO DAILY coenzyme Q10 [CoQ-10] 100 mg Capsule 100 mg PO DAILY cholecalciferol (vitamin D3) [Vitamin D3] 125 mcg (5,000 unit) Tablet 250 mcg PO DAILY Discharge Orders: Discharge Order (Routine); Ordered 06/26/22 Ordered By: Piero Parson/Other Patient Handouts: Diabetes: Meal Planning, Type 2 Diabetes Admission Data Admit Date/Time: 06/21/22 00:21 Attending Provider: Kristian Canseco Admit Provider: Yousif Eddy Primary Care Provider: Endy Garner Other Providers: Godwin Esquivel ; Kelton Ortez ; Delonte Robertson ; Boris Whiting Other Interventions: Discharge Summary Assessment (RN) Last Done: 06/26/22 12:26 Supervising Physician Co-Signing Physician Notes I personally examined the patient and verified all tang points of history and exam, discussed case, and agree with decision making with Dr Robles No change in right eye. Feels up to going home. Vitals noted, in general he is awake and alert pleasant no distress. HEENT normocephalic atraumatic mucous membranes moist. Breathing unlabored no accessory muscle use good effort. No other focal neuro deficits beyond right eye vision loss. No facial droop no arm weakness etc. Otherwise exam as above. Right eye blindnessgiven headache elevated sed rate paindifferentials definitely favor giant cell arteritis/temporal arteritis.Now postbiopsynegative for changes in the biopsied segmentw but given high probability will have rheumatology follow, continue current treatment for now. Is possible this was a small vessel atherosclerotic eventto which and he is on appropriate secondary risk reduction. Also to have ophthalmology follow-up in the coming days Acute renal failurenot obstructive based on renal ultrasound. To that end, probably dehydration and diarrhea compounding dehydration causing a fairly severe ATN type picture. Showing nice improvementat day of discharge creatinine down to 2.45safe/stable for home, p.o. hydration, outpatient labs in 2 to 3 days Type 2 diabeteslikely will be manageable with lifestyle change given that his A1c is only 7.0. Extensive discussion 06/25 with salient points reiterated today DVT prophylaxisHeparin subcu utilized during his stay Otherwise as above
[2022-06-26 10:27] LABS: BUN Creatinine Ratio 24.9 (10-20); Calcium 7.3 mg/dl (8.5-10.1); Est GFR (African American) 32.2 ml/min; Est GFR (Non-African American) 27.8 ml/min; Phosphorus 3.7 mg/dl (2.5-4.9); Potassium 3.3 mmol/L (3.5-5.1)
--- NOTE | 2022-06-26 11:39 | Nephrology Progress Note ---
Date of Service June 26, 2022 Assessment & Plan (1) TISHA (acute kidney injury): (2) Hypertension: (3) Heat stroke: Plan 61-year-old gentlemen with history of stage III CKD, baseline creatinine 1.8, admitted to the hospital with TISHA with creatinine 13 in the setting of heat stroke, volume depletion. Renal function rapidly improved with IV hydration, creatinine down to 3.5 this morning. Overall otherwise feeling well except some fatigue. Renal function continues to improve rapidly. -- give KCL 40 mew x 1 dose, advised to keep well hydrated, avoid NSAID. Expect renal function to continue to improve. Okay to be discharged from Nephrology standpoint with close outpatient lab monitoring 2 to 3 days after discharge and outpatient follow-up with Dr. Ortez at CKD clinic. -- Continue to monitor renal function daily while in hospital. Will follow Admission and Anticipated Discharge Date Admission Date: June 21, 2022 Maira Valdivia was seen and evaluated this morning. Overall feel he feels well but still having difficulty sleeping at night due to noises. has been having decent urine output and net negative. Renal function continues to improve, creatinine down to 2.5, K 3.3, high UO, other electrolyte acceptable. Review of Systems Review of Systems: detailed review of system was otherwise unremarkable except mentioned above. Physical Exam Constitutional: WD/WN, vitals as above no acute distress Eyes: + anicteric sclerae ENMT: Ears: no hearing impairment Neck: normal visual inspection Respiratory: normal respiratory effort; no respiratory distress Auscultation: lungs clear to auscultation bilaterally Cardiovascular: Rate/Rhythm: regular rate and regular rhythm Heart Sounds: normal S1 and normal S2 Extremities: no edema Skin: no rashes Neurologic: no focal motor deficits and not confused Psychiatric: Orientation: alert and oriented x 3 Results & Data ([facility]) Vital Signs (Past 12 Hours) Vital Signs Temp Pulse Resp BP BP Pulse Ox O2 Del Method 06/26/22 08:56 36.8 C 69 17 161/80 H 91 Room Air 06/26/22 04:45 36.7 C 72 20 136/75 92 Room Air 06/26/22 00:00 36.5 C 74 20 164/85 H 93 Room Air PG Care Time/CCT Total # of Minutes Spent Total Time Spent with Patient: Total time spent is greater than 50% in coordination of care (as documented) at patient's floor/unit and/or counseling patient: Coding Level of Care Code 19799 Subseq Hosp Care Lvl 3 Diagnoses TISHA (acute kidney injury) N17.9 Hypertension I10 Heat stroke T67.01XA
[2022-06-26] MEDS ORDERED: POTASSIUM CHLORIDE CRTAB 20 MEQ TABCR PO STA (11:40)
--- NOTE | 2022-06-26 18:13 | Billing Data ---
Date of Service June 26, 2022 Coding Level of Care Code D/C DAY MANAGEMENT <30 MINS
[2022-06-28 10:47] LABS: Quantiferon Mitogen-NIL 5.69 IU/mL; Quantiferon NIL 0.03 IU/mL; Quantiferon TB Gold Plus NEGATIVE (NEGATIVE); Quantiferon TB1-NIL 0.04 IU/mL; Quantiferon TB2-NIL 0.06 IU/mL
[2022-06-29 22:21] LABS: HBSAG NON-REACTIVE (NON-REACTIVE); Hepatitis B Core Antibody IgM NON-REACTIVE (NON-REACTIVE); Hepatitis BE Antibody Nonreactive; Hepatitis BE Antigen Nonreactive
== END 2022-06-26 14:30 | disposition home or self-care (01) | DRG 515 ==
LOC: ED 16:38 → 2N 06-21 00:21 → SUATTDRO 06-21 00:21 → 2N 06-21 02:55
DX: Z79.82 Long term (current) use of aspirin; E87.6 Hypokalemia; Z88.0 Allergy status to penicillin; Y92.89 Other specified places as the place of occurrence of the external cause; I74.9 Embolism and thrombosis of unspecified artery; H54.61 Unqualified visual loss, right eye, normal vision left eye; N18.30 Chronic kidney disease, stage 3 unspecified; E86.0 Dehydration; T67.01XA Heatstroke and sunstroke, initial encounter; M31.6 Other giant cell arteritis; E66.9 Obesity, unspecified; Z95.1 Presence of aortocoronary bypass graft; N17.0 Acute kidney failure with tubular necrosis; E11.22 Type 2 diabetes mellitus with diabetic chronic kidney disease; Z87.891 Personal history of nicotine dependence; Z68.34 Body mass index [BMI] 34.0-34.9, adult; I25.10 Atherosclerotic heart disease of native coronary artery without angina pectoris; E78.5 Hyperlipidemia, unspecified; Z86.73 Personal history of transient ischemic attack (TIA), and cerebral infarction without residual deficits; I12.9 Hypertensive chronic kidney disease with stage 1 through stage 4 chronic kidney disease, or unspecified chronic kidney disease; H57.11 Ocular pain, right eye